=== PATIENT | male | born 1940 | race Caucasian/White ===

== ENCOUNTER 2016-09-21 23:53 | Inpatient (IN) | payer MEDICARE ==
[~2016-09-21] VITALS: Ht 177.8 cm; Wt 120.0 kg
[2016-09-22] VITALS (10 sets, daily range): BP systolic 109–153; BP diastolic 73–96; PULSE 67–106; RESP 16–20; TEMP 96.8–98.2; O2SAT 93–97
--- NOTE | 2016-09-22 00:22 | PD ---
HPI Chief Complaint: Abdominal Pain Time Seen by Provider: 00:11 Travel History International Travel<30 days: No Contact w/Intl Traveler<30days: No Traveled to known affect area: No History of Present Illness HPI This is a 76-year-old male who presents with complaints of syncope. The patient also has a complaint of right upper quadrant abdominal pain 2 weeks. He reports fevers and chills. He reports nausea vomiting and diarrhea. The patient denies any urinary symptoms. The patient has been here for 2 weeks from [place]. His daughter who was at the home when the paramedics arrived states that he's been noncompliant with all his medications since his abdominal pain started. The patient was noted to be in A. fib with RVR with a rate in the 130s. They gave 20 mg of diltiazem. His current rate now is in the 70s. PFSH Social History Tobacco Use: No Allergies-Medications (Allergen,Severity, Reaction): Coded Allergies: No Known Allergies (Unverified , 09/22/16) Reported Meds & Prescriptions Reported Meds & Active Scripts Active Reported Flomax (Tamsulosin HCl) 0.4 Mg Cap 0.4 Mg PO HS Spironolactone 50 Mg Tab 50 Mg PO DAILY Furosemide 20 Mg Tab 20 Mg PO DAILY Oxycodone (Oxycodone HCl) 5 Mg Cap 5 Mg PO Q8H PRN Gabapentin 100 Mg Cap 100 Mg PO BID Tizanidine (Tizanidine HCl) 2 Mg Tab 2 Mg PO BID Lactulose Liq (Lactulose) 10 Gm/15 Ml Soln 30 Ml PO Q6H Digoxin 0.125 Mg Tab 0.125 Mg PO DAILY Metoprolol Tartrate 50 Mg Tab 50 Mg PO BID Review of Systems Except as stated in HPI: all other systems reviewed are Neg General / Constitutional: Positive: Fever HENT: No: Headaches, Lightheadedness Cardiovascular: No: Chest Pain or Discomfort, Palpitations Respiratory: No: Cough, Shortness of Breath Gastrointestinal: Positive: Nausea, Vomiting, Diarrhea, Abdominal Pain (right upper quadrant) Genitourinary: No: Dysuria, Decreased Urinary Output Musculoskeletal: Positive: Weakness (generalized), No: Pain Neurologic: Positive: Weakness (generalized), Syncope, No: Headache Physical Exam Narrative GENERAL: Well-developed well-nourished male in no acute respiratory distress. Patient is complaining of right upper quadrant pain. SKIN: Focused skin assessment warm/dry. HEAD: Atraumatic. Normocephalic. EYES: Questionable mild scleral icterus. No injection or drainage. ENT: Mucous membranes pink and moist. NECK: Trachea midline. No JVD. Supple CARDIOVASCULAR: Irregularly irregular rate in the 60s. No murmurs appreciated. RESPIRATORY: No accessory muscle use. Clear to auscultation. Breath sounds equal bilaterally. Decreased respiratory effort. GASTROINTESTINAL: Abdomen soft, distended. There is subjective tenderness in the right upper quadrant. No rebound or guarding. No pulsatile masses appreciated. No tense ascites appreciated MUSCULOSKELETAL: No obvious deformities. No clubbing. No cyanosis. Trace edema bilateral pretibial. NEUROLOGICAL: Awake and alert. No obvious cranial nerve deficits. Motor grossly within normal limits. Normal speech. Data Data Last Documented VS Vital Signs Date Time Temp Pulse Resp B/P Pulse Ox O2 Delivery O2 Flow Rate FiO2 09/22/16 01:03 85 16 153/96 96 Room Air 09/22/16 00:22 97.8 Orders Complete Blood Count With Diff (09/22/16 00:11) Comprehensive Metabolic Panel (09/22/16 00:11) Lipase (09/22/16 00:11) Lactic Acid (09/22/16:11) Prothrombin Time / Inr (Pt) (09/22/16:11) Act Partial Throm Time (Ptt) (09/22/16 00:11) Urinalysis - C+S If Indicated (09/22/16 00:11) Iv Access Insert/Monitor (09/22/16:11) Ecg Monitoring (09/22/16:11) Oximetry (09/22/16:11) Ct Brain W/O Iv Contrast(Rout) (09/22/16 00:11) Chest, Single Ap (09/22/16 00:11) Electrocardiogram (09/22/16 00:41) Ondansetron Inj (Zofran Inj) (09/22/16:15) Hydromorphone Pf Inj (Dilaudid Pf Inj) (09/22/16 01:15) Ct Abd/Pel W Iv Contrast(Rout) (09/22/16 01:41) Ammonia (09/22/16 01:41) Blood Glucose (09/22/16 01:41) Sodium Chloride 0.9% Flush (Ns Flush) (09/22/16 01:45) Iohexol 350 Inj (Omnipaque 350 Inj) (09/22/16 02:29) Lactulose Liq (Lactulose Liq) (09/22/16 03:15) Echo 2d Comp W/Dopp(Routine) (09/22/16 ) Lactic Acid (09/22/16 06:00) Furosemide Inj (Lasix Inj) (09/22/16 09:00) Place In Observation (09/22/16 ) Vital Signs (Adult) Q4H (09/22/16 03:12) Activity Oob With Assistance (09/22/16 03:12) Roller Mechanic / Telemetry .CONTINUOUS (09/22/16 03:12) Intake + Output WU.QSHIFT (09/22/16 03:12) Diet Heart Healthy (09/22/16 Breakfast) Sodium Chloride 0.9% Flush (Ns Flush) (09/22/16 03:15) Sodium Chloride 0.9% Flush (Ns Flush) (09/22/16 09:00) Ondansetron Inj (Zofran Inj) (09/22/16 03:15) Bisacodyl Supp (Dulcolax Supp) (09/22/16 03:15) Comprehensive Metabolic Panel (09/23/16 06:00) Complete Blood Count With Diff (09/23/16 06:00) Prothrombin Time / Inr (Pt) (09/23/16 06:00) Scd Bilateral/Knee High WU.BID (09/22/16 03:12) Lázaro Bilateral/Knee High WU.QSHIFT (09/22/16 03:12) Acetaminophen (Tylenol) (09/22/16 03:15) Morphine Inj (Morphine Inj) (09/22/16 03:15) Oxycodone (Roxicodone) (09/22/16 03:15) Digoxin (Lanoxin) (09/22/16 09:00) Metoprolol Tartrate (Lopressor) (09/22/16 09:00) Spironolactone (Aldactone) (09/22/16 09:00) Admit Order (Ed Use Only) (09/22/16 03:16) Labs Laboratory Tests Test 09/22/16 09/22/16 00:15 02:00 White Blood Count 9.3 TH/MM3 Red Blood Count 4.76 MIL/MM3 Hemoglobin 15.7 GM/DL Hematocrit 45.2 % Mean Corpuscular Volume 94.9 FL Mean Corpuscular Hemoglobin 33.0 PG Mean Corpuscular Hemoglobin 34.8 % Concent Red Cell Distribution Width 15.3 % Platelet Count 117 TH/MM3 Mean Platelet Volume 8.9 FL Neutrophils (%) (Auto) 80.6 % Lymphocytes (%) (Auto) 8.2 % Monocytes (%) (Auto) 10.1 % Eosinophils (%) (Auto) 0.4 % Basophils (%) (Auto) 0.7 % Neutrophils # (Auto) 7.5 TH/MM3 Lymphocytes # (Auto) 0.8 TH/MM3 Monocytes # (Auto) 0.9 TH/MM3 Eosinophils # (Auto) 0.0 TH/MM3 Basophils # (Auto) 0.1 TH/MM3 CBC Comment DIFF FINAL Differential Comment Prothrombin Time 18.0 SEC Prothromb Time International 1.6 RATIO Ratio Activated Partial 26.8 SEC Thromboplast Time Sodium Level 142 MEQ/L Potassium Level 4.0 MEQ/L Chloride Level 107 MEQ/L Carbon Dioxide Level 27.2 MEQ/L Anion Gap 8 MEQ/L Blood Urea Nitrogen 9 MG/DL Creatinine 0.84 MG/DL Estimat Glomerular Filtration 89 ML/MIN Rate Random Glucose 131 MG/DL Lactic Acid Level 2.6 mmol/L Calcium Level 7.9 MG/DL Total Bilirubin 2.9 MG/DL Aspartate Amino Transf 57 U/L (AST/SGOT) Alanine Aminotransferase 37 U/L (ALT/SGPT) Alkaline Phosphatase 116 U/L Total Protein 6.3 GM/DL Albumin 2.7 GM/DL Lipase 105 U/L Ammonia 132 [facility] Medical Decision Making Medical Screen Exam Complete: Yes Emergency Medical Condition: Yes Differential Diagnosis Cardiac syncope versus vasovagal versus metabolic arrangement versus anemia. Pancreatitis versus hepatitis versus SBP Narrative Course 76-year-old male with a history of hypertension, liver disease, atrial fibrillation, who presents here with altered mental status and question of a syncopal episode. Upon talking to the daughters he's more altered than syncope. The patient has an ammonia level of 132. CT brain shows what appears to be chronic changes. MRI, not emergent is recommended. The case was discussed with Dr. Flowers, [facility], who agrees to bring the patient under her service. He'll be restarted on his medications including lactulose for his ammonia. I discussed with his daughter that he will be admitted and started on his medications. She is agreeable to the plan. Diagnosis Primary Impression: Hyperammonemia Additional Impressions: Atrial fibrillation Hypertension Noncompliance with medication regimen Admitting Information Admitting Physician Requests: Observation Jono Khanna MD September 22, 2016 00:22
[2016-09-22] MEDS ORDERED: SPIR50TA PO (00:30)
[2016-09-22] MEDS ORDERED: TIZA2TAB PO (00:30)
[2016-09-22] MEDS ORDERED: FURO20TA PO (00:30)
[2016-09-22] MEDS ORDERED: DIGO0.12 PO (00:30)
[2016-09-22] MEDS ORDERED: TAMS5CAP PO (00:30)
[2016-09-22] MEDS ORDERED: OXYC1CAP PO (00:30)
[2016-09-22] MEDS ORDERED: METO50TA PO (00:30)
[2016-09-22] MEDS ORDERED: LACT10SO PO (00:30)
[2016-09-22] MEDS ORDERED: GABA100C4 PO (00:30)
[2016-09-22 00:34] LABS: AUTOMATED NEUTROPHIL # 7.5 TH/MM3 (1.8-7.7); BASOPHIL # 0.1 TH/MM3 (0-0.2); BASOPHIL % 0.7 % (0.0-2.0); EOSINOPHIL % 0.4 % (0.0-4.0); HEMATOCRIT 45.2 % (39.0-51.0); HEMO FLAGS DIFF FINAL; LYMPH % 8.2 % (9.0-44.0); LYMPHOCYTE # 0.8 TH/MM3 (1.0-4.8); MEAN CELL VOLUME 94.9 FL (80.0-100.0); MEAN CORPUSCULAR HGB CONC 34.8 % (32.0-36.0); MONO % 10.1 % (0.0-8.0); NEUT % 80.6 % (16.0-70.0); PLATELET COUNT 117 TH/MM3 (150-450); RED BLOOD COUNT 4.76 MIL/MM3 (4.50-5.90); RED CELL DISTRIBUTION WIDTH 15.3 % (11.6-17.2); WHITE BLOOD COUNT 9.3 TH/MM3 (4.0-11.0)
[2016-09-22 00:40] LABS: APTT (PATIENT) 26.8 SEC (24.3-30.1); INTERNATIONAL NORMALIZED RATIO 1.6 RATIO
[2016-09-22 00:49] LABS: ALT (GPT) 37 U/L (12-78); ANION GAP 8 MEQ/L (5-15); AST (GOT) 57 U/L (15-37); BICARBONATE 27.2 MEQ/L (21.0-32.0); BLOOD UREA NITROGEN 9 MG/DL (7-18); CHLORIDE 107 MEQ/L (98-107); GLOMERULAR FILTRATION RATE 89 ML/MIN (>89); SODIUM (NA) 142 MEQ/L (136-145)
[2016-09-22 00:52] LABS: ALKALINE PHOSPHATASE 116 U/L (45-117); TOTAL BILIRUBIN ADULT 2.9 MG/DL (0.2-1.0)
--- NOTE | 2016-09-22 00:55 | RADRPT ---
EXAM DATE/TIME: 09/22/2016 00:16 [facility] COMPARISON: No previous studies available for comparison. INDICATIONS : Shortness of breath. MEDICAL HISTORY : None. SURGICAL HISTORY : None. ENCOUNTER: Initial ACUITY: 1 day PAIN SCORE: Non-responsive. LOCATION: Bilateral chest FINDINGS: A single view of the chest demonstrates the lungs to be symmetrically aerated without evidence of mas s, infiltrate or effusion. The heart size is diffusely enlarged. The bony structures are grossly int act.. CONCLUSION: 1. No acute pulmonary infiltrates. 2. Prominent cardiomegaly. Chago Hill MD on September 22, 2016 at 0:52 Board Certified Radiologist. This report was verified electronically.
--- NOTE | 2016-09-22 01:05 | RADRPT ---
EXAM DATE/TIME: 09/22/2016 00:44 [facility] COMPARISON: No previous studies available for comparison. INDICATIONS : Syncope. RADIATION DOSE: 69.15 CTDIvol (mGy) MEDICAL HISTORY : Cardiovascular disease. Hypertension. Carcinoma, prostate. SURGICAL HISTORY : None. ENCOUNTER: Initial ACUITY: 1 day PAIN SCALE: 0/10 LOCATION: TECHNIQUE: Multiple contiguous axial images were obtained of the head. Using automated exposure control and adj ustment of the mA and/or kV according to patient size, radiation dose was kept as low as reasonably a chievable to obtain optimal diagnostic quality images. FINDINGS: CEREBRUM: The ventricles are normal for age. No evidence of midline shift, mass lesion, hemorrhage. There is a low area of decreased density in the right occipital lobe suggestive of a subacute to old infarction . There is a small area decreased density in the left basal ganglia suggestive of a focal subacute to old infarction. There are chronic white matter changes bilaterally. There are no prior studies for c omparison.. No extra-axial fluid collections are seen. POSTERIOR FOSSA: The cerebellum and brainstem are intact. The 4th ventricle is midline. The cerebellopontine angle i s unremarkable. EXTRACRANIAL: The visualized portion of the orbits is intact. SKULL: The calvaria is intact. No evidence of skull fracture. CONCLUSION: 1. No focal or acute intracranial hemorrhage. 2. Decreased density right occipital lobe suggestive of a subacute to old infarct. 3. Decreased density in the left basal ganglia suggestive of a subacute to old infarct. 4. Recommend MRI of the brain with and without contrast on a nonemergent basis. Chago Hill MD on September 22, 2016 at 1:00 Board Certified Radiologist. This report was verified electronically.
[2016-09-22] MEDS ORDERED: ONDANSETRON HCL 4 MG/2 ML VIAL IVP ONE (01:15)
[2016-09-22] MEDS ORDERED: HYDROmorphone HCL PF 1 MG/ML VIAL IVS ONE (01:15)
[2016-09-22] MEDS ORDERED: SODIUM CHLORIDE 0.9% FLUSH 10 ML FLUSH IVF PRN (01:45)
[2016-09-22] MEDS ORDERED: IOHEXOL 350 MG/ML 10 ML VIAL (for RAD DIAG) IV ONE (02:29)
--- NOTE | 2016-09-22 02:47 | RADRPT ---
EXAM DATE/TIME: 09/22/2016 02:25 [facility] COMPARISON: No previous studies available for comparison. INDICATIONS : Right upper quadrant abdominal pain. IV CONTRAST: 100 cc Omnipaque 350 (iohexol) IV ORAL CONTRAST: No oral contrast ingested. RADIATION DOSE: 19.31 CTDIvol (mGy) MEDICAL HISTORY : Cardiovascular disease. Hypertension. Carcinoma, prostate. SURGICAL HISTORY : None. ENCOUNTER: Initial ACUITY: 2 weeks PAIN SCALE: 10/10 LOCATION: abdomen TECHNIQUE: Volumetric scanning of the abdomen and pelvis was performed. Using automated exposure control and ad justment of the mA and/or kV according to patient size, radiation dose was kept as low as reasonably achievable to obtain optimal diagnostic quality images. FINDINGS: LOWER LUNGS: There is pleural thickening in both lung bases. The heart size is enlarged. The lung bases are grossl y clear. LIVER: Homogeneous density without lesion. There is no dilation of the biliary tree. No calcified gallston es. Multiple surgical clips are seen in the upper abdomen. SPLEEN: Normal size without lesion. PANCREAS: Within normal limits. KIDNEYS: Normal in size and shape. There is no mass, stone or hydronephrosis. ADRENAL GLANDS: Within normal limits. VASCULAR: There is no aortic aneurysm. BOWEL/MESENTERY: The stomach, small bowel, and colon demonstrate no acute abnormality. There is no free intraperitone al air or fluid. No inflammatory changes. There stool in the colon. ABDOMINAL WALL: Within normal limits. RETROPERITONEUM: There is no lymphadenopathy. BLADDER: There is some smooth thickening of the bladder wall. No stones. REPRODUCTIVE: There are seeds to in the prostate gland. INGUINAL: There is no lymphadenopathy or hernia. MUSCULOSKELETAL: Within normal limits for patient age. Degenerative changes. CONCLUSION: No acute intra-abdominal/pelvic pathology. Chago Hill MD on September 22, 2016 at 2:40 Board Certified Radiologist. This report was verified electronically.
[2016-09-22] MEDS ORDERED: ACETAMINOPHEN 325 MG TAB PO PRN (03:15)
[2016-09-22] MEDS ORDERED: MORPHINE SULFATE 4 MG/ML INJ IV PRN (03:15)
[2016-09-22] MEDS ORDERED: SODIUM CHLORIDE 0.9% FLUSH 10 ML FLUSH IV FLUSH PRN (03:15)
[2016-09-22] MEDS ORDERED: BISACODYL 10 MG SUPP RECTAL PRN (03:15)
[2016-09-22] MEDS ORDERED: ONDANSETRON HCL 4 MG/2 ML VIAL IVP PRN (03:15)
[2016-09-22] MEDS: LACTULOSE SYRUP 20 GM/30 ML CUP PO SCH ×3 (03:25→18:19)
--- NOTE | 2016-09-22 04:26 | HHI.HP ---
HPI Service [facility] Primary Care Physician No Primary Care Physician Admission Diagnosis hyperammonemia, A. fib, hypertension, medication noncompliance Diagnoses: (1) Syncope Diagnosis: Principal (2) A-fib Diagnosis: Principal (3) Hepatic encephalopathy Diagnosis: Principal (4) Cirrhosis Diagnosis: Principal (5) Lactic acidosis Diagnosis: Principal (6) HTN (hypertension) Diagnosis: Principal (7) Non-compliance Diagnosis: Principal Travel History International Travel<30 Days: No Contact w/Intl Traveler <30 Da: No Traveled to Known Affected Are: No History of Present Illness This is a 76-year-old male with a reported PMH of A. fib, HTN, Prostate CA and Cirrhosis who is brought to the ER by EMS secondary to apparent syncopal episode. Patient very poor historian, history obtained from medical record, per report pt visiting from [place], non-compliant w/ meds x2 wks. Daughter called EMS after pt had apparent syncopal episode, details unknown. Upon EMS arrival, pt noted to be in A-fib w/ RVR, HR 130's s/p Cardizem IV, now rate-controlled. On arrival, BP 109/81, HR 67, O2 sat 96% on RA, Afebrile. CBC unremarkable except for platelets 117, neutrophils 80, no previous labs for comparison. Lactic Acid 2.6. Ammonia 132. INR 1.6. 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 CXR with no acute findings. CT Abd/Pelvis negative for intra-abdominal pathology. Review of Systems Except as stated in HPI: all other systems reviewed are Neg ROS: 14 point review of systems otherwise negative. Past Family Social History Past Medical History PMH: A. fib, HTN, Prostate CA and Cirrhosis Past Surgical History PAST SURGICAL HISTORY: Prostate Seeds Allergies: Coded Allergies: No Known Allergies (Unverified , 09/22/16) Family History PAST FAMILY HISTORY: Reviewed. No h/o DM or CAD Social History PAST SOCIAL HISTORY: Reportedly negative for alcohol, tobacco or drugs. Physical Exam Vital Signs Vital Signs Date Time Temp Pulse Resp B/P Pulse Ox O2 Delivery O2 Flow Rate FiO2 09/22/16 03:58 16 97 Room Air 09/22/16 01:03 85 16 153/96 96 Room Air 09/22/16 00:22 97.8 67 16 109/81 96 Room Air Physical Exam PE: GENERAL: Elderly male in no acute distress, confused. HEENT: PERRLA, EOMI. No scleral icterus or conjunctival pallor. No lid lag or facial droop. CARDIOVASCULAR: Irregularly irregular, in A. fib, rate controlled. No obvious murmurs to auscultation. No chest tenderness to palpation. RESPIRATORY: No obvious rhonchi or wheezing. Clear to auscultation. Breath sounds equal bilaterally. GASTROINTESTINAL: Abdomen soft, mild tenderness to palpation RUQ/epigastric region, nondistended. BS normal. MUSCULOSKELETAL: Extremities without clubbing, cyanosis, or edema. No obvious deformities. NEUROLOGICAL: Awake, alert and oriented x4. No focal neurologic deficits. Moving both upper and lower extremities spontaneously. Laboratory Laboratory Tests Test 09/22/16 09/22/16 00:15 02:00 White Blood Count 9.3 Red Blood Count 4.76 Hemoglobin 15.7 Hematocrit 45.2 Mean Corpuscular Volume 94.9 Mean Corpuscular Hemoglobin 33.0 Mean Corpuscular Hemoglobin 34.8 Concent Red Cell Distribution Width 15.3 Platelet Count 117 Mean Platelet Volume 8.9 Neutrophils (%) (Auto) 80.6 Lymphocytes (%) (Auto) 8.2 Monocytes (%) (Auto) 10.1 Eosinophils (%) (Auto) 0.4 Basophils (%) (Auto) 0.7 Neutrophils # (Auto) 7.5 Lymphocytes # (Auto) 0.8 Monocytes # (Auto) 0.9 Eosinophils # (Auto) 0.0 Basophils # (Auto) 0.1 CBC Comment DIFF FINAL Differential Comment Prothrombin Time 18.0 Prothromb Time International 1.6 Ratio Activated Partial 26.8 Thromboplast Time Sodium Level 142 Potassium Level 4.0 Chloride Level 107 Carbon Dioxide Level 27.2 Anion Gap 8 Blood Urea Nitrogen 9 Creatinine 0.84 Estimat Glomerular Filtration 89 Rate Random Glucose 131 Lactic Acid Level 2.6 Calcium Level 7.9 Total Bilirubin 2.9 Aspartate Amino Transf 57 (AST/SGOT) Alanine Aminotransferase 37 (ALT/SGPT) Alkaline Phosphatase 116 Total Protein 6.3 Albumin 2.7 Lipase 105 Ammonia 132 Result Diagram: 09/22/16 0015 09/22/16 0015 Assessment and Plan Problem List: (1) Syncope ICD Code: R55 Status: Acute (2) A-fib ICD Code: I48.91 Status: Acute (3) Cirrhosis ICD Code: K74.60 Status: Acute (4) Lactic acidosis ICD Code: E87.2 Status: Acute (5) Hepatic encephalopathy ICD Code: K72.90 Status: Acute (6) HTN (hypertension) ICD Code: I10 Status: Acute (7) Non-compliance ICD Code: Z91.19 Status: Acute Assessment and Plan A/P: 1. Syncope: reported syncopal event at home, witnessed by Daughter, no convulsive activity noted, no incontinence. CT Head w/ no acute finding, noted to have subacute/old right occipital lobe infarct and subacute/old left basal ganglia infarct w/ recommendation for non-emergent MRI Brain, images reviewed by me. Admit for Observation, telemetry, check Echo. 2. A-fib: w/ RVR, HR 130's per EMS, s/p Cardizem IV x1, now rate-controlled. Non-compliant w/ meds. Resume home Digoxin and Metoprolol. Check Echo as above. 3. Cirrhosis: h/o Chronic Cirrhosis, unclear etiology. Non-compliant w/ meds x2 wks. Resume home Aldactone, Lasix and Lactulose. 4. Hepatic Encephalopathy: Pt noted to be confused, ammonia 132, off meds x2 wks as above. Resume home Lactulose, hold for loose stool. Neuro checks. 5. Lactic Acidosis: Lactate 2.6. Unclear etiology. No evidence of sepsis. IVF, repeat lactate in am. 6. HTN: BP 153/96, HR 85, resume home medications, monitor BP. 7. Non-Compliance: Pt off meds x2 wks, follows w/ doctors in [place] where he lives. 8. DVT Prophylaxis: SCD/Teds. 9. Social work for d/c planning as needed. 10. Case discussed w/ ER physician at length. Ijeoma Hsu MD September 22, 2016 04:26
[2016-09-22] MEDS ORDERED: DEXT 5%-NACL 0.45% 500 ML INJ 500 ML IV ONE (04:30)
[2016-09-22] MEDS: DIGOXIN 0.125 MG TAB PO SCH (08:17)
[2016-09-22] MEDS: SPIRONOLACTONE 50 MG TAB PO SCH (08:17)
[2016-09-22] MEDS: METOPROLOL TARTRATE 50 MG TAB PO SCH ×2 (08:17→21:40)
[2016-09-22] MEDS: SODIUM CHLORIDE 0.9% FLUSH 10 ML FLUSH IV FLUSH SCH ×2 (08:17→21:00)
[2016-09-22] MEDS: FUROSEMIDE 20 MG/2 ML VIAL IV PUSH SCH ×2 (08:18→18:19)
[2016-09-22 08:59] LABS: ANION GAP 3 MEQ/L (5-15); AST (GOT) 51 U/L (15-37); BICARBONATE 34.7 MEQ/L (21.0-32.0); BLOOD UREA NITROGEN 9 MG/DL (7-18); CHLORIDE 104 MEQ/L (98-107); GLOMERULAR FILTRATION RATE 93 ML/MIN (>89); POTASSIUM 4.3 MEQ/L (3.5-5.1); SODIUM (NA) 142 MEQ/L (136-145)
[2016-09-22 09:01] LABS: BACTERIA, URINE MOD /hpf; BLOOD, URINE NEG (NEG); COMMENT (UR) CULTURE INDICATED; CULTURE IF INDICATED CULTURE INDICATED; GLUCOSE,URINE NEG (NEG); KETONE, URINE NEG (NEG); MUCUS URINE FEW /lpf (OCC); NITRITE,URINE NEG (NEG); PH, URINE 6.5 (5.0-8.5); SQUAMOUS EPITHELIAL CELL URINE 1 /hpf (0-5); URINE COLOR YELLOW (YELLW/STRAW)
[2016-09-22 09:02] LABS: ALKALINE PHOSPHATASE 112 U/L (45-117); ALT (GPT) 39 U/L (12-78); TOTAL BILIRUBIN ADULT 3.3 MG/DL (0.2-1.0)
[2016-09-22] MEDS ORDERED: GADODIAMIDE PF 287 MG/ML 20 ML VIAL (for RAD MRI) IV ONE (09:43)
--- NOTE | 2016-09-22 10:13 | RADRPT ---
EXAM DATE/TIME: 09/22/2016 09:27 [facility] COMPARISON: CT BRAIN W/O CONTRAST, September 22, 2016, 0:44. INDICATIONS : Syncope. Abnormal CT. Lethargy. CONTRAST: 20 cc Omniscan (gadodiamide) IV MEDICAL HISTORY : Hypertension. Carcinoma, prostate. SURGICAL HISTORY : Prostate seed placement. ENCOUNTER: Initial ACUITY: 1 day PAIN SCORE: 0/10 LOCATION: cranial TECHNIQUE: Multiplanar, multisequence MRI of the brain was performed both prior to and following the administrat ion of paramagnetic contrast. FINDINGS: CEREBRUM: The ventricles are normal for age. Old infarct left basal ganglia. No evidence of midline shift, mass lesion, hemorrhage or acute infarction. No extraaxial fluid collections are seen. The pituitary gl and and suprasellar cistern are normal in configuration. WHITE MATTER: Scattered foci of bright T2 signal abnormalities are seen in the white matter. POSTERIOR FOSSA: The cerebellum and brainstem are intact. The 4th ventricle is midline. The cerebellopontine angle is unremarkable. The cerebellar tonsils are normal in position. DIFFUSION IMAGING: No focal areas of restricted diffusion are seen. No evidence of acute infarction. EXTRACRANIAL: The visualized portions of the orbits and paranasal sinuses are unremarkable. POST-CONTRAST: No abnormal areas of parenchymal or dural enhancement. No evidence of blood-brain barrier breakdown. CONCLUSION: 1. Remote infarct left basal ganglia. 2. No acute infarct and no acute intracranial abnormality. 3. No infarct right occipital lobe, the abnormality on CT scan is likely artifact. Nikita Brody MD on September 22, 2016 at 10:04 Board Certified Radiologist. This report was verified electronically.
[2016-09-22 10:23] LABS: LACTIC ACID GHOST NOT REPORTABLE
--- NOTE | 2016-09-22 10:59 | HHI.PR ---
Subjective Remarks Follow up for hepatic encephalopathy, syncope. The patient is awake but drowsy, oriented to self, knows he is in a hospital in [place], [place], knows the year is " -" but states the month is October. He does not recall the events leading up to his admission yesterday. He speaks and understands [place] well. He states he is just tired today. Denies any abdominal pain or nausea. He states he doesn't really have an appetite. The patient admits it's probably been at least a couple weeks since he's been taking his medications. When asked the last time he took lactulose, he states "ew I don't like that stuff", suspect patient hasn' t taken this in awhile. He does report history of paracentesis, does not recall when his last one was done but states he's had multiple paracentesis. He states he is from [place] but he lives here in [place] with his daughter. Objective Vitals Vital Signs Date Time Temp Pulse Resp B/P Pulse Ox O2 Delivery O2 Flow Rate FiO2 09/22/16 05:12 98.2 102 18 136/87 93 09/22/16 03:58 16 97 Room Air 09/22/16 01:03 85 16 153/96 96 Room Air 09/22/16 00:22 97.8 67 16 109/81 96 Room Air Result Diagram: 09/22/16 0015 09/22/16 0817 Imaging Last Impressions Abdomen/Pelvis CT 09/22/16 0141 Signed Impressions: Service Date/Time: Thursday, September 22, 2016 02:25 - CONCLUSION: No acute intra-abdominal/pelvic pathology. hCago Hill MD Head CT 09/22/16 001 Signed Impressions: Service Date/Time: Thursday, September 22, 2016 00:44 - CONCLUSION: 1. No focal or acute intracranial hemorrhage. 2. Decreased density right occipital lobe suggestive of a subacute to old infarct. 3. Decreased density in the left basal ganglia suggestive of a subacute to old infarct. 4. Recommend MRI of the brain with and without contrast on a nonemergent basis. Chago Hill MD Chest X-Ray 09/22/1610 Signed Impressions: Service Date/Time: Thursday, September 22, 2016 00:16 - CONCLUSION: 1. No acute pulmonary infiltrates. 2. Prominent cardiomegaly. Chago Hill MD Brain MRI 09/22/16 0000 Signed Impressions: Service Date/Time: Thursday, September 22, 2016 09:27 - CONCLUSION: 1. Remote infarct left basal ganglia. 2. No acute infarct and no acute intracranial abnormality. 3. No infarct right occipital lobe, the abnormality on CT scan is likely artifact. Nikita Brody MD Objective Remarks GENERAL: Well-nourished, well-developed pleasant elderly male patient in [place]. Drowsy, falls asleep during conversation. SKIN: Warm and dry. No rash. HEENT: Normocephalic. Atraumatic. Pupils equal and round. Minimal scleral icterus. Mucous membranes pink and moist. NECK: Supple. Trachea midline. CARDIOVASCULAR: Regular rate and rhythm. S1, S2 noted. No murmur appreciated. RESPIRATORY: No accessory muscle use. Clear to auscultation. Breath sounds equal bilaterally. GASTROINTESTINAL: Abdomen soft, non-tender, nondistended, mild ascites. Normoactive bowel sounds x4. MUSCULOSKELETAL: No obvious deformities. Extremities without clubbing, cyanosis , or edema. NEUROLOGICAL: Awake, but drowsy, oriented person, place, and year only. No obvious cranial nerve deficits. Motor grossly within normal limits. Normal speech. PSYCHIATRIC: Appropriate mood and affect; insight and judgment limited at this time. Medications and IVs Current Medications Medications (Trade) Dose Ordered Sig/Thor Route Start Time Stop Time Status Last Admin (Lactulose Liq) 30 ml Q8H PO 09/22/16 03:15 09/22/16 03:25 (Lasix Inj) 20 mg BID@,18 IV PUSH 09/22/16 09:00 09/22/16 08:18 (NS Flush) 2 ml UNSCH PRN IV FLUSH 09/22/16 03:15 (NS Flush) 2 ml BID IV FLUSH 09/22/16 09:00 (Zofran Inj) 4 mg Q6H PRN IVP 09/22/16 03:15 (Dulcolax Supp) 10 mg DAILY PRN RECTAL 09/22/16 03:15 (Tylenol) 650 mg Q6H PRN PO 09/22/16 03:15 (Morphine Inj) 2 mg Q3H PRN IV 09/22/16 03:15 (Roxicodone) 5 mg Q4H PRN PO 09/22/16 03:15 (Lanoxin) 0.125 mg DAILY PO 09/22/16 09:00 09/22/16 08:17 (Lopressor) 50 mg BID PO 09/22/16 09:00 09/22/16 08:17 (Aldactone) 50 mg DAILY PO 09/22/16 09:00 09/22/16 08:17 A/P Problem List: (1) Syncope ICD Code: R55 Status: Acute (2) A-fib ICD Code: I48.91 Status: Acute (3) Cirrhosis ICD Code: K74.60 Status: Acute (4) Lactic acidosis ICD Code: E87.2 Status: Acute (5) Hepatic encephalopathy ICD Code: K72.90 Status: Acute (6) HTN (hypertension) ICD Code: I10 Status: Acute (7) Non-compliance ICD Code: Z91.19 Status: Acute Assessment and Plan 76-year-old male with a reported PMH of A. fib, HTN, Prostate CA and Cirrhosis who is brought to the ER by EMS secondary to apparent syncopal episode. Patient very poor historian, history obtained from medical record, per report pt visiting from [place], non-compliant w/ meds x2 wks. Daughter called EMS after pt had apparent syncopal episode, details unknown. Upon EMS arrival, pt noted to be in A-fib w/ RVR, HR 130's s/p Cardizem IV, now rate-controlled. Syncope: reported syncopal event at home, witnessed by Daughter, no convulsive activity noted, no incontinence. CT Head images reviewed by me, no acute finding, subacute/old right occipital lobe infarct and subacute/old left basal ganglia infarct w/ recommendation for non-emergent MRI Brain. Brain MRI shows remote infarct left basal ganglia, no acute infarct; no infarct right occipital lobe, abnormality seen on CT likely artifact. Admitted for Observation, monitor on telemetry, check Echo. A-fib: w/ RVR, HR 130's per EMS, s/p Cardizem IV x1, now rate-controlled. Non- compliant w/ meds. Resume home Digoxin and Metoprolol. Check Echo as above. Cirrhosis: h/o Chronic Cirrhosis, unclear etiology. Non-compliant w/ meds x2 wks. Resumed home Aldactone, Lasix and Lactulose. Hepatic Encephalopathy: Pt noted to be confused, ammonia 145, off meds x2 wks as above. Resumed home Lactulose q6h, hold for loose stool. Continue Neuro checks. Add Rifaximin. Lactic Acidosis: Lactate 2.6. Unclear etiology. No evidence of sepsis. IVF, repeat lactate improving, 2.2. HTN: BP 153/96, HR 85, resumed home medications, monitor BP. Non-Compliance: Pt off meds x2 wks, follows w/ doctors in [place] reportedly however patient states he lives in [place] with his daughter. Will clarify when patient is more awake/alert and discuss with family. Patient needs f/up with PCP and GI in [place] upon discharge. DVT Prophylaxis: SCD/Teds. Discussed with Dr. Polanco. Georgie Patrick PA-C September 22, 2016 10:59
[2016-09-22] MEDS ORDERED: THIAMINE INJ 100 MG in SODIUM CHLORIDE 0.9% INJ 100 ML IV ONE (13:00)
--- NOTE | 2016-09-22 13:55 | EKG ---
Date Performed: 09/22/2016 Time Performed: 00:01:20 PTAGE: 76 years EKG: ATRIAL FIBRILLATION NONSPECIFIC T-WAVE ABNORMALITY LEFT VENTRICULAR HYPERTROPHY CANNOT BE E XCLUDED ABNORMAL RHYTHM ECG NO PREVIOUS TRACING DOCTOR: Melanie Mancera Interpretating Date/Time 09/22/2016 13:55:17
--- NOTE | 2016-09-22 13:57 | EKG ---
Date Performed: 09/22/2016 Time Performed: 06:36:28 PTAGE: 76 years EKG: ATRIAL FIBRILLATION WITH RAPID VENTRICULAR RESPONSE WITH ABERRANT CONDUCTION OR VENTRICULAR PREMATURE COMPLEXES ST DEVIATION AND MODERATE T-WAVE ABNORMALITY, CONSIDER LATERAL ISCHEMIA Compared to previous tracing, there has been an increased in the lateral ST-T wave changes. This may be rela fidel to the increase in heart rate but clinical correlation is advised. ABNORMAL ECG PREVIOUS TRACING : 09/22/2016 00.01 DOCTOR: Melanie Mancera Interpretating Date/Time 09/22/2016 13:56:04
[2016-09-22] MEDS: RIFAXIMIN 550 MG TAB PO SCH ×2 (14:59→21:00)
--- NOTE | 2016-09-22 16:11 | EC ---
Study Study Date:09/22/2016 STUDY CONCLUSIONS SUMMARY - Left ventricle: The cavity size was normal. Wall thickness was normal. Systolic function was normal. The estimated ejection fraction was in the range of 50% to 55%. Wall motion was normal; there were no regional wall motion abnormalities. - Aortic valve: Valve area: 2.14cm^2 (Vmax). - Left atrium: The atrium was mildly dilated. If LV function is below 40, please consider prescribing an ACEI or ARB or document rationale for non-use. PROCEDURE DATA STUDY STATUS: Elective. Procedure: Transthoracic echocardiography. Image quality was good. Scanning was performed from the parasternal, apical, and subcostal acoustic windows. Study completion: The patient tolerated the procedure well. Transthoracic echocardiography. M-mode, complete 2D, complete spectral Doppler, and color Doppler. Height: Height: 70in. Weight: Weight: 263.5lb. Body mass index: BMI: 37.9kg/m^2. Body surface area: BSA: 2.35m^2. Patient status: Inpatient. CARDIAC ANATOMY LEFT VENTRICLE: The cavity size was normal. Wall thickness was normal. Systolic function was normal. The estimated ejection fraction was in the range of 50% to 55%. Wall motion was normal; there were no regional wall motion abnormalities. AORTIC VALVE: Trileaflet; mildly thickened, mildly calcified leaflets. Doppler: Transvalvular velocity was within the normal range. There was no stenosis. No regurgitation. Valve area: 2.14cm^2 (Vmax). Indexed valve area: 0.91cm^2/m^2 (Vmax). AORTA: Aortic root: The aortic root was normal in size. MITRAL VALVE: Structurally normal valve. Doppler: Transvalvular velocity was within the normal range. There was no evidence for stenosis. No regurgitation. LEFT ATRIUM: The atrium was mildly dilated. RIGHT VENTRICLE: The cavity size was normal. Wall thickness was normal. PULMONIC VALVE: Doppler: Transvalvular velocity was within the normal range. There was no evidence for stenosis. No regurgitation. TRICUSPID VALVE: Structurally normal valve. Doppler: Transvalvular velocity was within the normal range. No regurgitation. PULMONARY ARTERY: The main pulmonary artery was normal-sized. Systolic pressure was within the normal range. RIGHT ATRIUM: The atrium was normal in size. PERICARDIUM: There was no pericardial effusion. SYSTEMIC VEINS: Inferior vena cava: The vessel was normal in size. Patient weight: 263.5lb _Ejection fraction:_ 65-75% _Fractional shortening:_ 32% up to 5Kg 5-11.5Kg 11.6-22.9Kg 23-45Kg 45-57Kg Aortic Root 7-13 <17 13-22 17-27 17-27 LA diam 6-13 <23 24-38 33-47 37-40 RVID 10-17 7-15 7-15 7-18 8-17 LVIDd 12-22 <32 24-38 33-47 37-40 LVPW 2-4 3-6 5-7 6-8 7-8 IVS 2-4 3-6 5-7 6-8 7-8 BASIC MEASUREMENTS ADULT NORMAL Left ventricle LV internal dimension, ED, chordal 51.4 mm 43-52 level, PLAX LV internal dimension, ES, chordal *40.4 mm 23-38 level, PLAX Fractional shortening, chordal level, *21 % >29 PLAX LV posterior wall thickness, ED 13 mm IVS/LVPW ratio, ED 1.02 <1.3 Ventricular septum Septal thickness, ED 13.2 mm Aortic valve Leaflet separation 18 mm 15-26 Right ventricle RV internal dimension, ED, PLAX 24.8 mm 19-38 BASIC MEASUREMENTS ADULT NORMAL Aortic valve Leaflet separation 18 mm 15-26 Aorta Root diameter, ED 24 mm 20-37 Left atrium Anterior-posterior dimension, ES *43 mm 19-40 Anterior-posterior dimension index, ES 1.83 cm/m^2 <2.2 LA/aortic root ratio 1.79 DOPPLER MEASUREMENTS ADULT NORMAL Main pulmonary artery Pressure, S 30 mm Hg =30 Aortic valve Peak velocity, S 110 cm/s Valve area, Vmax 2.14 cm^2 Valve area index, Vmax 0.91 cm^2/m^2 Tricuspid valve Regurgitant peak velocity 229 cm/s Peak RV-RA gradient, S 21 mm Hg Maximal regurgitant velocity 229 cm/s Systemic veins Estimated CVP 10 mm Hg Right ventricle RV pressure, S *34 mm Hg <30 Pulmonic valve Peak velocity, S 105 cm/s LEGEND: Mean values are shown as u=mean value. Asterisk (*) garzon values outside specified normal range. Prepared and signed by Ismael Norwood [id number]
[2016-09-23] VITALS (8 sets, daily range): BP systolic 107–141; BP diastolic 67–96; PULSE 85–119; RESP 18–20; TEMP 96.5–99.4; O2SAT 90–96
[2016-09-23] MEDS: LACTULOSE SYRUP 20 GM/30 ML CUP PO SCH ×5 (06:00→23:23)
[2016-09-23] MEDS: SPIRONOLACTONE 50 MG TAB PO SCH (08:40)
[2016-09-23] MEDS: DIGOXIN 0.125 MG TAB PO SCH (08:40)
[2016-09-23] MEDS: RIFAXIMIN 550 MG TAB PO SCH ×2 (08:40→21:33)
[2016-09-23] MEDS: FUROSEMIDE 20 MG/2 ML VIAL IV PUSH SCH ×2 (08:40→16:41)
[2016-09-23] MEDS: METOPROLOL TARTRATE 50 MG TAB PO SCH ×2 (08:41→21:33)
--- NOTE | 2016-09-23 09:17 | HHI.PR ---
Subjective Remarks Patient seen and examined this am. Complaining of back pain, that started yesterday. Takes oxycodone at home. Was previously getting this then was stopped, likely due to the patients increased drowsiness. The patients vitals are stable. He denies SOB. He states he has "little bit of chest pain." He states his daughter brought him to the hospital because he was sleeping too much. He states he last saw a doctor two months ago. He states he's planning on living her for a while. Objective Vital Signs Date Time Temp Pulse Resp B/P Pulse Ox O2 Delivery O2 Flow Rate FiO2 09/23/16 07:50 99.4 88 20 107/67 90 09/23/16 04:00 98.7 85 18 120/70 95 09/23/16 00:00 99.1 110 20 118/70 95 09/22/16 20:00 97.2 82 18 122/74 97 09/22/16 19:05 97 Nasal Cannula 2.00 09/22/16 16:30 96.8 69 20 116/74 97 09/22/16 15:48 98.2 72 18 117/73 96 09/22/16 10:48 97.8 70 18 147/87 95 09/22/16 10:25 106 I/O 09/22/16 09/22/16 09/22/16 09/23/16 09/23/16 09/23/16 07:00 15:00 23:00 07:00 15:00 23:00 Intake Total 240 ml 240 ml Output Total 600 ml 300 ml Balance -360 ml -60 ml Intake Oral 240 ml 240 ml Output Urine Total 600 ml 300 ml # Voids 1 2 # Bowel Movements 1 Result Diagram: 09/22/16 0015 09/22/16 0817 Imaging Last Impressions Abdomen/Pelvis CT 09/22/16 0141 Signed Impressions: Service Date/Time: Thursday, September 22, 2016 02:25 - CONCLUSION: No acute intra-abdominal/pelvic pathology. Chago Hill MD Head CT 09/22/16 0011 Signed Impressions: Service Date/Time: Thursday, September 22, 2016 00:44 - CONCLUSION: 1. No focal or acute intracranial hemorrhage. 2. Decreased density right occipital lobe suggestive of a subacute to old infarct. 3. Decreased density in the left basal ganglia suggestive of a subacute to old infarct. 4. Recommend MRI of the brain with and without contrast on a nonemergent basis. Chago Hill MD Chest X-Ray 09/22/16 0011 Signed Impressions: Service Date/Time: Thursday, September 22, 2016 00:16 - CONCLUSION: 1. No acute pulmonary infiltrates. 2. Prominent cardiomegaly. Chago Hill MD Brain MRI 09/22/16 0000 Signed Impressions: Service Date/Time: Thursday, September 22, 2016 09:27 - CONCLUSION: 1. Remote infarct left basal ganglia. 2. No acute infarct and no acute intracranial abnormality. 3. No infarct right occipital lobe, the abnormality on CT scan is likely artifact. Nikita Brody MD Objective Remarks GENERAL: Well-nourished, well-developed pleasant elderly male patient in [facility]. He is awake and alert. Answers questions appropriately. SKIN: Warm and dry. No rash. HEENT: Normocephalic. Atraumatic. Pupils equal and round. Minimal scleral icterus. Mucous membranes pink and moist. NECK: Supple. Trachea midline. CARDIOVASCULAR: Regular rate and rhythm. S1, S2 noted. No murmur appreciated. RESPIRATORY: No accessory muscle use. Clear to auscultation. Breath sounds equal bilaterally. GASTROINTESTINAL: Abdomen soft, non-tender, nondistended, mild ascites. Normoactive bowel sounds x4. MUSCULOSKELETAL: No obvious deformities. Extremities without clubbing, cyanosis , or edema. NEUROLOGICAL: Awake, alert and orientated.. No obvious cranial nerve deficits. Motor grossly within normal limits. Normal speech. PSYCHIATRIC: Appropriate mood and affect; insight and judgment limited at this time. A/P Problem List: (1) Atrial fibrillation ICD Code: I48.91 (2) Hyperammonemia ICD Code: E72.20 (3) Hypertension ICD Code: I10 (4) A-fib ICD Code: I48.91 (5) Syncope ICD Code: R55 (6) HTN (hypertension) ICD Code: I10 Assessment and Plan 76-year-old male with a reported PMH of A. fib, HTN, Prostate CA and Cirrhosis who is brought to the ER by EMS secondary to apparent syncopal episode. Patient very poor historian, history obtained from medical record, per report pt visiting from [place], non-compliant w/ meds x2 wks. Daughter called EMS after pt had apparent syncopal episode, details unknown. Upon EMS arrival, pt noted to be in A-fib w/ RVR, HR 130's s/p Cardizem IV, now rate-controlled. Syncope: reported syncopal event at home, witnessed by Daughter, no convulsive activity noted, no incontinence. CT Head image no acute finding, subacute/old right occipital lobe infarct and subacute/old left basal ganglia infarct w/ recommendation for non-emergent MRI Brain. Brain MRI shows remote infarct left basal ganglia, no acute infarct; no infarct right occipital lobe, abnormality seen on CT likely artifact. Admitted for Observation, monitor on telemetry, check Echo. A-fib:w/ RVR on admission, likely due to Non-compliant w/ meds. Resume home Digoxin and Metoprolol. Check Echo: EF 50-55%, normal wall motion, left atrium mildly dilated. CHADS-VASC 3 given age, hx HTN, and hx vascular disease. Likely needs anticoagulation, wishes to discuss this when daughter arrives. Will try to coordinate a meeting with her. Cirrhosis: h/o Chronic Cirrhosis, unclear etiology. Non-compliant w/ meds x2 wks. Resumed home Aldactone, Lasix and Lactulose. Hepatic Encephalopathy: Pt noted to be confused, ammonia 145, off meds x2 wks as above. Resumed home Lactulose q6h, hold for loose stool. Continue Neuro checks. Add Rifaximin. Lactic Acidosis: Lactate 2.6. Unclear etiology. No evidence of sepsis. IVF, repeat lactate improving, 1.9. HTN: BP 153/96, HR 85, resumed home medications, monitor BP. Non-Compliance: Pt off meds x2 wks, follows w/ doctors in [place] reportedly however patient states he lives in [place] with his daughter. Patient needs f/up with PCP and GI in [place] upon discharge. DVT Prophylaxis: SCD/Teds Discharge Planning D/C home pending clinical improvement. Likely 1-2 days. Must determine plan for anticoagulation. Iesha Bray MD R3 September 23, 2016 09:17
--- NOTE | 2016-09-23 09:36 | HHI.FPPN ---
Addendum to progress note ADDENDUM Reason for addendum: Additonal documentation Additional information UA is significant for bacteria and leuk est. I have started the patient on rocephin 1 g daily. - UC is pending Iesha Bray MD R3 September 23, 2016 09:36
[2016-09-23] MEDS: SODIUM CHLORIDE 0.9% FLUSH 10 ML FLUSH IV FLUSH SCH ×2 (10:45→21:00)
[2016-09-23] MEDS: cefTRIAXone INJ 1,000 MG in SODIUM CHLORIDE 0.9% INJ 100 ML IV SCH (10:45)
--- NOTE | 2016-09-23 13:45 | HHI.FPPN ---
Addendum to progress note ADDENDUM Reason for addendum: Additonal documentation Additional information Met with patients daughter. Discussed patients medical hx further. Patient has long standing hx of afib. Was previously on anticoagulation but states when he had prostate surgery 7 years ago it was never resumed. Throughout his life she states his anticoagulation has been stopped and started she is unsure why. 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 She states she will contact him in the am so that we can determine if the patient should be discharged on anticoagulation. Iesha Bray MD R3 September 23, 2016 13:45
[2016-09-23 14:25] LABS: AUTOMATED NEUTROPHIL # 8.2 TH/MM3 (1.8-7.7); BASOPHIL % 0.3 % (0.0-2.0); EOSINOPHIL % 0.1 % (0.0-4.0); HEMATOCRIT 43.7 % (39.0-51.0); LYMPHOCYTE # 0.5 TH/MM3 (1.0-4.8); MEAN CELL VOLUME 96.3 FL (80.0-100.0); MEAN CORPUSCULAR HEMOGLOBIN 32.4 PG (27.0-34.0); MEAN CORPUSCULAR HGB CONC 33.6 % (32.0-36.0); MONO % 10.5 % (0.0-8.0); NEUT % 84.1 % (16.0-70.0); PLATELET COUNT 95 TH/MM3 (150-450); RED BLOOD COUNT 4.53 MIL/MM3 (4.50-5.90); RED CELL DISTRIBUTION WIDTH 15.6 % (11.6-17.2); WHITE BLOOD COUNT 9.8 TH/MM3 (4.0-11.0)
[2016-09-23 14:27] LABS: HEMO FLAGS AUTO DIFF
[2016-09-23 14:31] LABS: INTERNATIONAL NORMALIZED RATIO 1.7 RATIO; PROTHROMBIN TIME - PATIENT 19.5 SEC (9.8-11.6)
[2016-09-23 14:44] LABS: ALKALINE PHOSPHATASE 100 U/L (45-117); TOTAL BILIRUBIN ADULT 2.1 MG/DL (0.2-1.0)
[2016-09-23 14:51] LABS: ALT (GPT) 38 U/L (12-78); ANION GAP 6 MEQ/L (5-15); AST (GOT) 52 U/L (15-37); BICARBONATE 35.4 MEQ/L (21.0-32.0); BLOOD UREA NITROGEN 11 MG/DL (7-18); CHLORIDE 99 MEQ/L (98-107); GLOMERULAR FILTRATION RATE 87 ML/MIN (>89); POTASSIUM 3.7 MEQ/L (3.5-5.1); SODIUM (NA) 140 MEQ/L (136-145)
[2016-09-23 15:10] LABS: PLATELET ESTIMATE SMEAR LOW (NORMAL); PLATELET MORPHOLOGY NORMAL (NORMAL); SCAN/DIFF AUTO DIFF CONFIRMED
[2016-09-24] VITALS (7 sets, daily range): BP systolic 98–148; BP diastolic 63–87; PULSE 62–133; RESP 17–18; TEMP 96.9–98.1; O2SAT 93–98
[2016-09-24] MEDS: LACTULOSE SYRUP 20 GM/30 ML CUP PO SCH ×3 (05:59→17:31)
[2016-09-24] MEDS: DIGOXIN 0.125 MG TAB PO SCH (09:35)
[2016-09-24] MEDS: SPIRONOLACTONE 50 MG TAB PO SCH (09:35)
[2016-09-24] MEDS: RIFAXIMIN 550 MG TAB PO SCH ×2 (09:35→20:52)
[2016-09-24] MEDS: FUROSEMIDE 20 MG/2 ML VIAL IV PUSH SCH (09:35)
[2016-09-24] MEDS: SODIUM CHLORIDE 0.9% FLUSH 10 ML FLUSH IV FLUSH SCH ×2 (09:35→20:53)
[2016-09-24] MEDS: METOPROLOL TARTRATE 50 MG TAB PO SCH ×2 (09:35→20:53)
[2016-09-24] MEDS: cefTRIAXone INJ 1,000 MG in SODIUM CHLORIDE 0.9% INJ 100 ML IV SCH (11:10)
--- NOTE | 2016-09-24 13:55 | HHI.PR ---
Subjective Remarks Follow-up for syncope, atrial fibrillation, hepatic encephalopathy. Patient is currently doing well. Denies any acute chest pain, shortness of breath, fever or chills. He is able to get up from bed and use bedside commode. He is also bloating short distance in the room. Objective Vitals Vital Signs Date Time Temp Pulse Resp B/P Pulse Ox O2 Delivery O2 Flow Rate FiO2 09/24/16 12:00 98.1 71 18 111/63 93 09/24/16 08:00 97.5 110 18 125/76 97 09/24/16 04:00 96.9 133 18 124/86 98 09/24/16 00:00 97.6 86 18 125/87 98 09/23/16 20:37 118 09/23/16 20:00 97.4 113 18 141/96 96 09/23/16 15:50 96.9 119 20 118/74 96 I/O 09/23/16 09/23/16 09/23/16 09/24/16 09/24/16 09/24/16 07:00 15:00 23:00 07:00 15:00 23:00 Intake Total 240 ml 466 ml 480 ml 240 ml Output Total 300 ml 400 ml 450 ml Balance -60 ml 66 ml 480 ml 240 ml -450 ml Intake Oral 240 ml 341 ml 480 ml 240 ml IV Total 125 ml Output Urine Total 300 ml 400 ml 450 ml # Voids 2 1 2 # Bowel Movements 6 1 3 2 Result Diagram: 09/23/16 1413 09/23/16 1413 Imaging Last Impressions Abdomen/Pelvis CT 09/22/16 0141 Signed Impressions: Service Date/Time: Thursday, September 22, 2016 02:25 - CONCLUSION: No acute intra-abdominal/pelvic pathology. Chago Hill MD Head CT 09/22/16 0011 Signed Impressions: Service Date/Time: Thursday, September 22, 2016 00:44 - CONCLUSION: 1. No focal or acute intracranial hemorrhage. 2. Decreased density right occipital lobe suggestive of a subacute to old infarct. 3. Decreased density in the left basal ganglia suggestive of a subacute to old infarct. 4. Recommend MRI of the brain with and without contrast on a nonemergent basis. Chago Hill MD Chest X-Ray 09/22/1610 Signed Impressions: Service Date/Time: Thursday, September 22, 2016 00:16 - CONCLUSION: 1. No acute pulmonary infiltrates. 2. Prominent cardiomegaly. Chago Hill MD Brain MRI 09/22/16 0000 Signed Impressions: Service Date/Time: Thursday, September 22, 2016 09:27 - CONCLUSION: 1. Remote infarct left basal ganglia. 2. No acute infarct and no acute intracranial abnormality. 3. No infarct right occipital lobe, the abnormality on CT scan is likely artifact. Nikita Brody MD Objective Remarks GENERAL: Alert, oriented 3, NAD. SKIN: Warm and dry. HEAD: Normocephalic. EYES: No scleral icterus. No injection or drainage. NECK: Supple, trachea midline. No JVD or lymphadenopathy. CARDIOVASCULAR: Regular rate and rhythm without murmurs, gallops, or rubs. RESPIRATORY: Breath sounds equal bilaterally. No accessory muscle use. GASTROINTESTINAL: Abdomen soft, non-tender, nondistended. MUSCULOSKELETAL: No cyanosis, or edema. BACK: Nontender without obvious deformity. No CVA tenderness. Procedures None A/P Problem List: (1) Syncope ICD Code: R55 Status: Acute (2) A-fib ICD Code: I48.91 Status: Acute (3) Cirrhosis ICD Code: K74.60 Status: Acute (4) Lactic acidosis ICD Code: E87.2 Status: Acute (5) Hepatic encephalopathy ICD Code: K72.90 Status: Acute (6) HTN (hypertension) ICD Code: I10 Status: Acute (7) Non-compliance ICD Code: Z91.19 Status: Acute Assessment and Plan 76-year-old male with a reported PMH of A. fib, HTN, Prostate CA and Cirrhosis who is brought to the ER by EMS secondary to apparent syncopal episode. Patient very poor historian, history obtained from medical record, per report pt visiting from [place], non-compliant w/ meds x2 wks. Daughter called EMS after pt had apparent syncopal episode, details unknown. Upon EMS arrival, pt noted to be in A-fib w/ RVR, HR 130's s/p Cardizem IV, now rate-controlled. Syncope: reported syncopal event at home, witnessed by Daughter, no convulsive activity noted, no incontinence. CT Head image no acute finding, subacute/old right occipital lobe infarct and subacute/old left basal ganglia infarct w/ recommendation for non-emergent MRI Brain. Brain MRI shows remote infarct left basal ganglia, no acute infarct; no infarct right occipital lobe, abnormality seen on CT likely artifact. A-fib:w/ RVR on admission, likely due to Non-compliant w/ meds. Resume home Digoxin and Metoprolol. Check Echo: EF 50-55%, normal wall motion, left atrium mildly dilated. CHADS-VASC 3 given age, hx HTN, and hx vascular disease. Patient was apparently on warfarin before. However, his doctors discontinued warfarin. Daughter is supposed to contact his sybase developer regarding re- starting Warfarin. Cirrhosis: h/o Chronic Cirrhosis, unclear etiology. Non-compliant w/ meds x2 wks. Resumed home Aldactone, Lasix and Lactulose. - Will switch to Lasix 20mg BID. Will consider increasing Aldactone to 100mg Qday. Hepatic Encephalopathy: Pt noted to be confused, ammonia 145, off meds x2 wks as above. Resumed home Lactulose q6h, hold for loose stool. Continue Neuro checks. Add Rifaximin. - Patient appears to be back to his baseline. Alert, coherent thought process. Lactic Acidosis: Lactate 2.6. Unclear etiology. No evidence of sepsis. IVF, repeat lactate improving, 1.9. HTN: Normotensive. Continue Metoprolol 50mg BID, Spironolactone. Probable UTI - Patient's Urine cx growing Group D Enterococcus. Sensitivity pending. Full code. Ambulation. Probable discharge on 09/25/2016. Ginny Han DO September 24, 2016 1:55 pm
[2016-09-24] MEDS: FUROSEMIDE 20 MG TAB PO SCH (17:31)
[2016-09-25] VITALS: BP 138/84; PULSE 93; RESP 17; TEMP 96.7; O2SAT 97
[2016-09-25 04:00] VITALS: BP 115/72; PULSE 82; RESP 17; TEMP 96.5; O2SAT 96
[2016-09-25] MEDS: LACTULOSE SYRUP 20 GM/30 ML CUP PO SCH ×4 (05:51→18:00)
[2016-09-25 08:00] VITALS: BP 119/93; PULSE 78; RESP 18; TEMP 98; O2SAT 97
--- NOTE | 2016-09-25 08:16 | PQ ---
Physician Query Response Document PATIENT: AYANNA LILLY : 1940 ADMIT DATE: 09/22/2016 3:20 AM DISCH DATE: RESPONDING PROVIDER #: [email or web address] QUERY TEXT: Clarification of Clinical Diagnostic Findings Please clarify documentation or clinical relevance for the clinical / diagnostic findings: UA is significant for bacteria and leuk est SUCH : 1) URINARY TRACT INFECTION 2) NO URINARY TRACT INFECTION 3) OTHER, PLEASE EXPLAIN PLEASE CALL [facility] [id number] FOR ASSISTANCE The patient's Clinical Indicators include: PER ADDENDUM NOTE 09/23/16: UA is significant for bacteria and leuk est. I have started the patient on rocephin 1 g daily. 09/22/16 URINE CULTURE SHOWS GROUP D ENTEROCOCCUS Query created by: Brenda Smith on 09/24/2016 2:11 PM RESPONSE TEXT: Urinary tract infection due to Enterococcus Faecalis Electronically signed by: Valeriy Han DO 09/25/2016 8:12 AM
[2016-09-25] MEDS ORDERED: AMOX875T PO (09:30)
[2016-09-25] MEDS ORDERED: XIFA550T4 PO (09:30)
[2016-09-25] MEDS: METOPROLOL TARTRATE 50 MG TAB PO SCH ×2 (10:20→20:39)
[2016-09-25] MEDS: SPIRONOLACTONE 50 MG TAB PO SCH (10:20)
[2016-09-25] MEDS: FUROSEMIDE 20 MG TAB PO SCH ×2 (10:20→18:00)
[2016-09-25] MEDS: DIGOXIN 0.125 MG TAB PO SCH (10:21)
[2016-09-25] MEDS: SODIUM CHLORIDE 0.9% FLUSH 10 ML FLUSH IV FLUSH SCH ×2 (10:21→20:39)
[2016-09-25] MEDS: RIFAXIMIN 550 MG TAB PO SCH ×2 (10:21→20:38)
--- NOTE | 2016-09-25 11:32 | HHI.DS ---
Discharge Summary Admission Date September 22, 2016 at 3:20 am Discharge Date: September 25, 2016 Admitting Diagnosis hyperammonemia, A. fib, hypertension, medication noncompliance (1) Syncope ICD Code: R55 Diagnosis: Principal (2) A-fib ICD Code: I48.91 (3) Cirrhosis ICD Code: K74.60 (4) Lactic acidosis ICD Code: E87.2 (5) Hepatic encephalopathy ICD Code: K72.90 (6) HTN (hypertension) ICD Code: I10 (7) Non-compliance ICD Code: Z91.19 (8) Acute respiratory failure with hypoxia ICD Code: J96.01 Diagnosis: Principal (9) UTI (urinary tract infection) due to Enterococcus ICD Code: N39.0 Diagnosis: Principal Procedures None Brief History - From Admission This is a 76-year-old male with a reported PMH of A. fib, HTN, Prostate CA and Cirrhosis who is brought to the ER by EMS secondary to apparent syncopal episode. Patient very poor historian, history obtained from medical record, per report pt visiting from [place], non-compliant w/ meds x2 wks. Daughter called EMS after pt had apparent syncopal episode, details unknown. Upon EMS arrival, pt noted to be in A-fib w/ RVR, HR 130's s/p Cardizem IV, now rate-controlled. On arrival, BP 109/81, HR 67, O2 sat 96% on RA, Afebrile. CBC unremarkable except for platelets 117, neutrophils 80, no previous labs for comparison. Lactic Acid 2.6. Ammonia 132. INR 1.6. 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 CXR with no acute findings. CT Abd/Pelvis negative for intra-abdominal pathology. CBC/BMP: 09/23/16 1413 09/23/16 1413 Significant Findings Laboratory Tests Test 09/23/16 14:13 Platelet Count 95 TH/MM3 (150-450) Neutrophils (%) (Auto) 84.1 % (16.0-70.0) Lymphocytes (%) (Auto) 5.0 % (9.0-44.0) Monocytes (%) (Auto) 10.5 % (0.0-8.0) Neutrophils # (Auto) 8.2 TH/MM3 (1.8-7.7) Lymphocytes # (Auto) 0.5 TH/MM3 (1.0-4.8) Monocytes # (Auto) 1.0 TH/MM3 (0-0.9) Platelet Estimate LOW (NORMAL) Prothrombin Time 19.5 SEC (9.8-11.6) Carbon Dioxide Level 35.4 MEQ/L (21.0-32.0) Estimat Glomerular Filtration 87 ML/MIN (>89) Rate Random Glucose 110 MG/DL (74-106) Calcium Level 8.3 MG/DL (8.5-10.1) Total Bilirubin 2.1 MG/DL (0.2-1.0) Aspartate Amino Transf 52 U/L (15-37) (AST/SGOT) Ammonia 91 MCMOL/L (11-32) Total Protein 5.9 GM/DL (6.4-8.2) Albumin 2.4 GM/DL (3.4-5.0) PE at Discharge GENERAL: Alert, oriented 3, NAD. SKIN: Warm and dry. HEAD: Normocephalic. EYES: No scleral icterus. No injection or drainage. NECK: Supple, trachea midline. No JVD or lymphadenopathy. CARDIOVASCULAR: Regular rate and rhythm without murmurs, gallops, or rubs. RESPIRATORY: Breath sounds equal bilaterally. No accessory muscle use. GASTROINTESTINAL: Abdomen soft, non-tender, nondistended. MUSCULOSKELETAL: No cyanosis, or edema. BACK: Nontender without obvious deformity. No CVA tenderness. Pt update on day of discharge Patient is doing well. No acute concerns. Denies any fever, chills. Walk test indicated need for home O2. Hospital Course 76-year-old male with a reported PMH of A. fib, HTN, Prostate CA and Cirrhosis who is brought to the ER by EMS secondary to apparent syncopal episode. Patient very poor historian, history obtained from medical record, per report pt visiting from [place], non-compliant w/ meds x2 wks. Daughter called EMS after pt had apparent syncopal episode, details unknown. Upon EMS arrival, pt noted to be in A-fib w/ RVR, HR 130's s/p Cardizem IV, now rate-controlled. Syncope: reported syncopal event at home, witnessed by Daughter, no convulsive activity noted, no incontinence. CT Head image no acute finding, subacute/old right occipital lobe infarct and subacute/old left basal ganglia infarct w/ recommendation for non-emergent MRI Brain. Brain MRI shows remote infarct left basal ganglia, no acute infarct; no infarct right occipital lobe, abnormality seen on CT likely artifact. A-fib:w/ RVR on admission, likely due to Non-compliant w/ meds. Resume home Digoxin and Metoprolol. Check Echo: EF 50-55%, normal wall motion, left atrium mildly dilated. CHADS-VASC 3 given age, hx HTN, and hx vascular disease. Patient was apparently on warfarin before. However, his doctors discontinued warfarin. Daughter is supposed to contact his chestnut tanner regarding re- starting Warfarin. Cirrhosis: h/o Chronic Cirrhosis, unclear etiology. Non-compliant w/ meds x2 wks. Resumed home Aldactone, Lasix and Lactulose. - Will switch to Lasix 20mg BID. Will consider increasing Aldactone to 100mg Qday. Hepatic Encephalopathy: Pt noted to be confused, ammonia 145, off meds x2 wks as above. Resumed home Lactulose q6h, hold for loose stool. Continue Neuro checks. Add Rifaximin. - Patient appears to be back to his baseline. Alert, coherent thought process. Lactic Acidosis: Lactate 2.6. Unclear etiology. No evidence of sepsis. IVF, repeat lactate improving, 1.9. HTN: Normotensive. Continue Metoprolol 50mg BID, Spironolactone. Probable UTI - Patient's Urine cx growing Group D Enterococcus. Patient received Unasyn. We will discharge him on Amoxicillin on discharge. Acute respiratory failure with hypoxia - Walk test indicates need for O2. Home O2 arranged prior to discharge. Full code. Ambulation. Pt Condition on Discharge: Good Discharge Disposition: Discharge Home Discharge Time: > 30 minutes Discharge Instructions Follow up Referrals: PCP Follow-up - 1 Week New Medications: Amoxicillin (Amoxicillin) 875 Mg Tab 875 MG PO BID Infection #20 Ref 0 TAB Oxygen tank (Oxygen tank) 1 Ea Tank 2 LITER RODOLFO.CANULA CONTINUOUS Oxygen Concentrator Portable Gaseous 2 L/min via Nasal Cannula Continuous For 99 months HYPOXEMIA PREVENTION #1 CYLINDER Rifaximin (Xifaxan) 550 Mg Tab 550 MG PO BID Hepatic encephalopathy #60 TAB Changed Medications: Furosemide (Furosemide) 20 Mg Tab 20 MG PO BID Fluid #60 Ref 0 TAB (Changed from: DAILY; 30) Continued Medications: Digoxin (Digoxin) 0.125 Mg Tab 0.125 MG PO DAILY Regulate Heart Beat #30 Ref 0 TAB Gabapentin (Gabapentin) 100 Mg Cap 100 MG PO BID #60 Ref 0 CAP Lactulose Liq (Lactulose Liq) 10 Gm/15 Ml Soln 30 ML PO Q6H Ref 0 ML Metoprolol Tartrate (Metoprolol Tartrate) 50 Mg Tab 50 MG PO BID #60 Ref 0 TAB Oxycodone (Oxycodone) 5 Mg Cap 5 MG PO Q8H PRN PAIN Ref 0 CAP Spironolactone (Spironolactone) 50 Mg Tab 50 MG PO DAILY #30 Ref 0 TAB Tamsulosin (Flomax) 0.4 Mg Cap 0.4 MG PO HS Manage Prostate Problems #30 Ref 0 CAP Tizanidine (Tizanidine) 2 Mg Tab 2 MG PO BID Muscle Spasm Ref 0 TAB Ginny Han DO September 25, 2016 11:32
[2016-09-25] MEDS ORDERED: OXYGENTANK NAS.CANULA (11:33)
[2016-09-25] MEDS ORDERED: FURO20TA PO (11:34)
[2016-09-25 12:00] VITALS: BP 95/76; PULSE 69; RESP 18; TEMP 96.6; O2SAT 98
[2016-09-25] MEDS: AMOXICILLIN 875 MG TAB PO SCH ×2 (14:34→20:38)
[2016-09-25 16:00] VITALS: BP 133/83; PULSE 73; RESP 18; TEMP 97.6; O2SAT 95
[2016-09-25 20:50] VITALS: BP 158/95; PULSE 62; RESP 18; O2SAT 96
== END 2016-09-25 20:55 | disposition home or self-care (01) | DRG 442 ==
LOC: NEPE 23:53 → NEDA 09-22 03:20 → OBSVTOIN 09-22 03:20 → NEPGCP 09-22 04:36 → HOCB 09-22 16:20
PROVIDERS: ADMIT Hospitalist; ATTEND Hospitalist
DX: K72.90 Hepatic failure, unspecified without coma (principal); E87.2 Acidosis; N39.0 Urinary tract infection, site not specified; I48.91 Unspecified atrial fibrillation; K74.60 Unspecified cirrhosis of liver; I10 Essential (primary) hypertension; R09.02 Hypoxemia; B95.2 Enterococcus as the cause of diseases classified elsewhere; Z91.14 Patient's other noncompliance with medication regimen
CPT/HCPCS: 70450; 70553; 71010; 74177; 80053; 81001; 82140; 83605; 83690; 85025; 85610; 85730; 87077; 87086; 87186; 93005; 93306; 94620; 96374; 96375; A9579; J0696; J1170; J1940; J2405; J3411; Q9967

== ENCOUNTER → 2016-10-04 | Outpatient (CLI) | payer MEDICARE ==
[~2016-10-04] MED LIST: AMOX875T PO; DIGO0.12 PO; FURO20TA PO; GABA100C4 PO; LACT10SO PO; METO50TA PO; OXYC1CAP PO; OXYGENTANK NAS.CANULA; SPIR50TA PO; TAMS5CAP PO; TIZA2TAB PO; XIFA550T4 PO
[2016-10-04 09:50] LABS: AUTOMATED NEUTROPHIL # 2.9 TH/MM3 (1.8-7.7); BASOPHIL % 0.7 % (0.0-2.0); EOSINOPHIL # 0.1 TH/MM3 (0-0.4); EOSINOPHIL % 1.9 % (0.0-4.0); HEMATOCRIT 45.4 % (39.0-51.0); HEMO FLAGS DIFF FINAL; LYMPH % 29.6 % (9.0-44.0); LYMPHOCYTE # 1.6 TH/MM3 (1.0-4.8); MEAN CELL VOLUME 95.8 FL (80.0-100.0); MEAN CORPUSCULAR HEMOGLOBIN 31.5 PG (27.0-34.0); MEAN CORPUSCULAR HGB CONC 32.9 % (32.0-36.0); MONO % 12.6 % (0.0-8.0); NEUT % 55.2 % (16.0-70.0); PLATELET COUNT 133 TH/MM3 (150-450); RED BLOOD COUNT 4.75 MIL/MM3 (4.50-5.90); RED CELL DISTRIBUTION WIDTH 15.9 % (11.6-17.2); WHITE BLOOD COUNT 5.3 TH/MM3 (4.0-11.0)
[2016-10-04 10:24] LABS: ANION GAP 8 MEQ/L (5-15); BLOOD UREA NITROGEN 8 MG/DL (7-18); CHLORIDE 99 MEQ/L (98-107); GLOMERULAR FILTRATION RATE 99 ML/MIN (>89); GLUCOSE,FASTING 76 MG/DL (74-99); POTASSIUM 4.1 MEQ/L (3.5-5.1); SODIUM (NA) 141 MEQ/L (136-145)
[2016-10-04 10:33] LABS: BLOOD, URINE NEG (NEG); COMMENT (UR) CULT NOT INDICATED; CULTURE IF INDICATED CULT NOT INDICATED; GLUCOSE,URINE NEG (NEG); HYALINE CAST, URINE 9 /lpf (RARE); KETONE, URINE NEG (NEG); MUCUS URINE FEW /lpf (OCC); NITRITE,URINE NEG (NEG); SQUAMOUS EPITHELIAL CELL URINE 1 /hpf (0-5); URINE COLOR YELLOW (YELLW/STRAW)
[2016-10-04 10:38] LABS: ALKALINE PHOSPHATASE 117 U/L (45-117)
[2016-10-04 10:39] LABS: ALT (GPT) 31 U/L (12-78); AST (GOT) 34 U/L (15-37); DIGOXIN 0.3 NG/ML (0.8-2.0); FREE T4 0.81 NG/DL (0.76-1.46); HDL CHOLESTEROL 45.7 MG/DL (40.0-60.0); LDL CHOLESTEROL 86 MG/DL (0-99); TOTAL BILIRUBIN ADULT 2.4 MG/DL (0.2-1.0)
== END ==
LOC: CLAB 09:15
PROVIDERS: ATTEND Family Medicine
DX: K72.90 Hepatic failure, unspecified without coma (principal); I48.91 Unspecified atrial fibrillation; E78.5 Hyperlipidemia, unspecified
CPT/HCPCS: 36415; 80053; 80061; 80162; 81001; 82140; 84439; 84443; 85025

== ENCOUNTER 2016-12-02 17:59 | Inpatient (IN) | payer MEDICARE ==
[~2016-12-02] VITALS: Ht 170.2 cm; Wt 98.4 kg
[2016-12-02 18:12] VITALS: BP 124/90; PULSE 90; RESP 21; TEMP 98.5; O2SAT 97
[2016-12-02] MEDS ORDERED: LACTULOSE SYRUP 20 GM/30 ML CUP PO ONE (18:15)
[2016-12-02 18:24] VITALS: O2SAT 96
--- NOTE | 2016-12-02 18:34 | PD ---
HPI Chief Complaint: Altered Mental Status Time Seen by Provider: 18:30 Travel History International Travel<30 days: No Contact w/Intl Traveler<30days: No Traveled to known affect area: No History of Present Illness HPI 76-year-old male that presents to the ED for evaluation of altered mental status. Patient comes here by ambulance for evaluation of this. Patient hasn' t known history of A. fib as well as cirrhosis and was recently admitted in September for similar. Patient apparently is noncompliant with his lactulose which she states he does not like to take. Apparently per daughter who takes care of the patient his just been more confused and more lethargic. Patient in examination is able to answer some basic questions but he does appear to be altered so history is somewhat difficult to obtain. Patient states having urinary issues secondary to prostate issues. He does apparently have a history of prostate cancer. He denies any chest pain or abdominal pain. No bowel movement issues. He states that he has difficulty urinating secondary to prostate issues. Allergy to codeine. Unclear if patient takes any blood thinners. No fevers chills or sweats. No signs of head injury. Family members not present on initial presentation. Most of the history is obtained from ambulance as well as ED nurse report. PFSH Past Medical History Atrial Fibrillation: Yes Heart Rhythm Problems: Yes (AFIB) Cancer: Yes (Prostate cancer) Cardiovascular Problems: Yes (afib rvr) High Cholesterol: Yes Cirrhosis: Yes Gastrointestinal Disorders: Yes Genitourinary: No Hypertension: Yes Implanted Vascular Access Dvce: No Musculoskeletal: Yes Neurologic: No Psychiatric: No Respiratory: No Immunizations Current: Yes Influenza Vaccination: Yes Past Surgical History Other Surgery: Yes (unknown prostate procedure) Social History Alcohol Use: No Tobacco Use: No Substance Use: No Allergies-Medications (Allergen,Severity, Reaction): Coded Allergies: Codeine (Verified Adverse Reaction, Intermediate, Dizziness, 12/02/16) Reported Meds & Prescriptions Reported Meds & Active Scripts Active Furosemide 20 Mg Tab 20 Mg PO BID Oxygen tank (Oxygen) 1 Ea Tank 2 Liter RODOLFO.CANULA CONTINUOUS Oxygen Concentrator Portable Gaseous 2 L/min via Nasal Cannula Continuous For 99 months Xifaxan (Rifaximin) 550 Mg Tab 550 Mg PO BID Amoxicillin 875 Mg Tab 875 Mg PO BID Reported Flomax (Tamsulosin HCl) 0.4 Mg Cap 0.4 Mg PO HS Spironolactone 50 Mg Tab 50 Mg PO DAILY Oxycodone (Oxycodone HCl) 5 Mg Cap 5 Mg PO Q8H PRN Gabapentin 100 Mg Cap 100 Mg PO BID Tizanidine (Tizanidine HCl) 2 Mg Tab 2 Mg PO BID Lactulose Liq (Lactulose) 10 Gm/15 Ml Soln 30 Ml PO Q6H Digoxin 0.125 Mg Tab 0.125 Mg PO DAILY Metoprolol Tartrate 50 Mg Tab 50 Mg PO BID Review of Systems ROS Limitations: Altered Mental Status Except as stated in HPI: all other systems reviewed are Neg Physical Exam Exam Limitations: Altered Mental Status Narrative GENERAL: SKIN: Warm and dry. HEAD: Atraumatic. Normocephalic. EYES: Pupils equal and round 4 mm reactive to light and accommodation. No scleral icterus. No injection or drainage. ENT: No nasal bleeding or discharge. Mucous membranes pink and moist. Tongue is midline. No uvula deviation. NECK: Trachea midline. No JVD. CARDIOVASCULAR: Regular rate and rhythm. No murmurs, S3, S4. RESPIRATORY: No accessory muscle use. Clear to auscultation. Breath sounds equal bilaterally. GASTROINTESTINAL: Abdomen soft, non-tender, nondistended. Hepatic and splenic margins not palpable. MUSCULOSKELETAL: Extremities without clubbing, cyanosis, or edema. No obvious deformities. Full range of motion of the upper and lower extremities bilaterally. 2+ pulses bilaterally. NEUROLOGICAL: Awake and alert and oriented to person and place. No obvious cranial nerve deficits. Motor grossly within normal limits. Five out of 5 muscle strength in the arms and legs. Normal speech. PSYCHIATRIC: Appropriate mood and affect; insight and judgment normal. Data Data Last Documented VS Vital Signs Date Time Temp Pulse Resp B/P Pulse Ox O2 Delivery O2 Flow Rate FiO2 12/02/16 19:17 85 18 127/69 99 Room Air 12/02/16 18:12 98.5 Orders Electrocardiogram (12/02/16 18:11) Complete Blood Count With Diff (12/02/16 18:11) Comprehensive Metabolic Panel (12/02/16 18:11) Troponin I (12/02/16 18:11) Prothrombin Time / Inr (Pt) (12/02/16 18:11) Act Partial Throm Time (Ptt) (12/02/16 18:11) Blood Culture (12/02/16 18:11) Lipase (12/02/16 18:11) Urinalysis - C+S If Indicated (12/02/16 18:11) Magnesium (Mg) (12/02/16 18:11) Ammonia (12/02/16 18:11) Thyroid Stimulating Hormone (12/02/16 18:11) Chest, Single Ap (12/02/16 18:11) Ct Brain W/O Iv Contrast(Rout) (12/02/16 18:11) Iv Access Insert/Monitor (12/02/16 18:11) Ecg Monitoring (12/02/16 18:11) Oximetry (12/02/16 18:11) Lactulose Liq (Lactulose Liq) (12/02/16 18:15) Cath For Specimen (12/02/16 18:30) Lactic Acid (12/02/16 18:37) Digoxin (12/02/16 19:21) Place In Observation (12/02/16 ) Vital Signs (Adult) Q4H (12/02/16 19:37) Neuro Checks Q4H (12/02/16 19:37) Activity Oob With Assistance (12/02/16 19:37) Intake + Output WU.QSHIFT (12/02/16 19:37) Diet Regular Basic (12/03/16 Breakfast) Sodium Chloride 0.9% Flush (Ns Flush) (12/02/16 19:45) Sodium Chloride 0.9% Flush (Ns Flush) (12/02/16 21:00) Ondansetron Inj (Zofran Inj) (12/02/16 19:45) Comprehensive Metabolic Panel (12/03/16 06:00) Complete Blood Count With Diff (12/03/16 06:00) Pt Request For Service (12/02/16 19:37) Scd Bilateral/Knee High WU.BID (12/02/16 19:37) Lázaro Bilateral/Knee High WU.QSHIFT (12/02/16 19:37) Oxycodone (Roxicodone) (12/02/16 19:45) Oxycodone (Roxicodone) (12/02/16 19:45) Docusate Sodium-Senna (Berna-Colace) (12/02/16 21:00) Magnesium Hydroxide Liq (Milk Of Magnesi (12/02/16 19:45) Sennosides (Senokot) (12/02/16 19:45) Bisacodyl Supp (Dulcolax Supp) (12/02/16 19:45) Lactulose Liq (Lactulose Liq) (12/02/16 19:45) Digoxin (Lanoxin) (12/03/16 09:00) Furosemide (Lasix) (12/02/16 21:00) Lactulose Liq (Lactulose Liq) (12/02/16 19:45) Metoprolol Tartrate (Lopressor) (12/02/16 21:00) Rifaximin (Xifaxan) (12/02/16 21:00) Spironolactone (Aldactone) (12/03/16 09:00) Tizanidine Hcl (Zanaflex) (12/02/16 21:00) Admit Order (Ed Use Only) (12/02/16 19:51) Labs Laboratory Tests Test 12/02/16 18:15 White Blood Count 7.2 TH/MM3 Red Blood Count 5.09 MIL/MM3 Hemoglobin 17.8 GM/DL Hematocrit 49.8 % Mean Corpuscular Volume 97.8 FL Mean Corpuscular Hemoglobin 34.9 PG Mean Corpuscular Hemoglobin 35.7 % Concent Red Cell Distribution Width 14.4 % Platelet Count 129 TH/MM3 Mean Platelet Volume 9.3 FL Neutrophils (%) (Auto) 59.6 % Lymphocytes (%) (Auto) 26.7 % Monocytes (%) (Auto) 11.9 % Eosinophils (%) (Auto) 1.6 % Basophils (%) (Auto) 0.2 % Neutrophils # (Auto) 4.3 TH/MM3 Lymphocytes # (Auto) 1.9 TH/MM3 Monocytes # (Auto) 0.9 TH/MM3 Eosinophils # (Auto) 0.1 TH/MM3 Basophils # (Auto) 0.0 TH/MM3 CBC Comment DIFF FINAL Differential Comment Prothrombin Time 15.3 SEC Prothromb Time International 1.4 RATIO Ratio Activated Partial 24.6 SEC Thromboplast Time Sodium Level 140 MEQ/L Potassium Level 4.2 MEQ/L Chloride Level 105 MEQ/L Carbon Dioxide Level 27.0 MEQ/L Anion Gap 8 MEQ/L Blood Urea Nitrogen 17 MG/DL Creatinine 1.13 MG/DL Estimat Glomerular Filtration 63 ML/MIN Rate Random Glucose 108 MG/DL Lactic Acid Level 2.5 mmol/L Calcium Level 9.1 MG/DL Magnesium Level 2.1 MG/DL Total Bilirubin 2.7 MG/DL Aspartate Amino Transf 49 U/L (AST/SGOT) Alanine Aminotransferase 40 U/L (ALT/SGPT) Alkaline Phosphatase 125 U/L Ammonia 168 MCMOL/L Troponin I LESS THAN 0.02 NG/ML Total Protein 7.1 GM/DL Albumin 3.0 GM/DL Lipase 253 U/L Thyroid Stimulating Hormone 0.585 uIU/ML [address] [place] [address] Medical Decision Making Medical Screen Exam Complete: Yes Emergency Medical Condition: Yes Medical Record Reviewed: Yes Interpretation(s) CBC & BMP Diagram 12/02/16 18:[address] 12/02/161810 Signed Impressions: Service Date/Time: Friday, December 02, 2016 18:54 - CONCLUSION: 1. Nonspecific white matter changes. 2. No acute intracranial abnormality. Nikita Brody MD Chest X-Ray 12/02/161810 Signed Impressions: Service Date/Time: Friday, December 02, 2016 18:31 - CONCLUSION: 1. Bibasilar atelectasis. 2. Cardiomegaly. Nikita Brody MD lactic acid of 2.5 LFTs within normal limits. Ammonia elevated in the 160s Troponin and CK-MB negative. EKG shows atrial fibrillation but not RVR. No sign of ischemia read by me and attending. Differential Diagnosis Altered mental status versus cirrhosis versus hyperammonemia versus encephalopathy versus lactic acidosis versus noncompliant versus sepsis Narrative Course 76-year-old male that presents to the ED for evaluation of altered mental status. Patient was properly examined and was found to have signs and symptoms consistent appears to be likely hyperammonemia with hepatic encephalopathy. Labs and imaging ordered. Patient was given lactulose here. Labs and imaging showed elevated ammonia as well as lactic acidosis. Patient still confused. At this time I recommend admission for further management of the hepatic encephalopathy. Likely from not taking his medications. Case was discussed with Dr. Hsu agrees to admission. Patient was admitted as an obs. Diagnosis Primary Impression: Hepatic encephalopathy Additional Impressions: Lactic acidosis Non-compliance Cirrhosis Qualified Code: K70.30 - Alcoholic cirrhosis of liver without ascites Admitting Information Admitting Physician Requests: Madhuri Khan,Franco PA Dec 02, 2016 18:34
[2016-12-02 18:36] LABS: AUTOMATED NEUTROPHIL # 4.3 TH/MM3 (1.8-7.7); BASOPHIL % 0.2 % (0.0-2.0); EOSINOPHIL # 0.1 TH/MM3 (0-0.4); EOSINOPHIL % 1.6 % (0.0-4.0); HEMATOCRIT 49.8 % (39.0-51.0); HEMO FLAGS DIFF FINAL; LYMPH % 26.7 % (9.0-44.0); LYMPHOCYTE # 1.9 TH/MM3 (1.0-4.8); MEAN CELL VOLUME 97.8 FL (80.0-100.0); MEAN CORPUSCULAR HEMOGLOBIN 34.9 PG (27.0-34.0); MEAN CORPUSCULAR HGB CONC 35.7 % (32.0-36.0); MONO % 11.9 % (0.0-8.0); NEUT % 59.6 % (16.0-70.0); PLATELET COUNT 129 TH/MM3 (150-450); RED BLOOD COUNT 5.09 MIL/MM3 (4.50-5.90); RED CELL DISTRIBUTION WIDTH 14.4 % (11.6-17.2); WHITE BLOOD COUNT 7.2 TH/MM3 (4.0-11.0)
--- NOTE | 2016-12-02 18:45 | RADRPT ---
EXAM DATE/TIME: 12/02/2016 18:31 [facility] COMPARISON: CHEST SINGLE AP, September 22, 2016, 0:16. INDICATIONS : Shortness of breath. MEDICAL HISTORY : None. SURGICAL HISTORY : None. ENCOUNTER: Initial ACUITY: 1 day PAIN SCORE: 0/10 LOCATION: Bilateral chest FINDINGS: A single view of the chest demonstrates bibasilar atelectasis. Cardiomegaly. Mediastinum unremarkable . Osseous structures are intact. CONCLUSION: 1. Bibasilar atelectasis. 2. Cardiomegaly. Nikita Brody MD on December 02, 2016 at 18:43 Board Certified Radiologist. This report was verified electronically.
[2016-12-02 18:46] LABS: APTT (PATIENT) 24.6 SEC (24.3-30.1); INTERNATIONAL NORMALIZED RATIO 1.4 RATIO; PROTHROMBIN TIME - PATIENT 15.3 SEC (9.8-11.6)
[2016-12-02 19:09] LABS: ANION GAP 8 MEQ/L (5-15); AST (GOT) 49 U/L (15-37); BLOOD UREA NITROGEN 17 MG/DL (7-18); CHLORIDE 105 MEQ/L (98-107); GLOMERULAR FILTRATION RATE 63 ML/MIN (>89); MAGNESIUM 2.1 MG/DL (1.5-2.5); POTASSIUM 4.2 MEQ/L (3.5-5.1); SODIUM (NA) 140 MEQ/L (136-145)
--- NOTE | 2016-12-02 19:09 | RADRPT ---
EXAM DATE/TIME: 12/02/2016 18:54 [facility] COMPARISON: MRI BRAIN W & W/O CONTRAST, September 22, 2016, 9:27. CT BRAIN W/O CONTRAST, September 22, 2016, 0:44. INDICATIONS : Altered mental status; ETOH. RADIATION DOSE: 56.35 CTDIvol (mGy) MEDICAL HISTORY : Cardiovascular disease. Hypertension. Carcinoma, prostate.Cirrhosis SURGICAL HISTORY : None. ENCOUNTER: Initial ACUITY: 1 day PAIN SCALE: 0/10 LOCATION: cranial TECHNIQUE: Multiple contiguous axial images were obtained of the head. Using automated exposure control and adj ustment of the mA and/or kV according to patient size, radiation dose was kept as low as reasonably a chievable to obtain optimal diagnostic quality images. DICOM format image data is available electro nically for review and comparison. FINDINGS: CEREBRUM: The ventricles are normal for age. Scattered areas of low attenuation throughout the white matter. Re mote infarct left basal ganglia. No evidence of midline shift, mass lesion, hemorrhage or acute infar ction. No extra-axial fluid collections are seen. POSTERIOR FOSSA: The cerebellum and brainstem are intact. The 4th ventricle is midline. The cerebellopontine angle i s unremarkable. EXTRACRANIAL: The visualized portion of the orbits is intact. SKULL: The calvaria is intact. No evidence of skull fracture. CONCLUSION: 1. Nonspecific white matter changes. 2. No acute intracranial abnormality. Nikita Brody MD on December 02, 2016 at 19:06 Board Certified Radiologist. This report was verified electronically.
[2016-12-02 19:12] LABS: ALKALINE PHOSPHATASE 125 U/L (45-117); ALT (GPT) 40 U/L (12-78); TOTAL BILIRUBIN ADULT 2.7 MG/DL (0.2-1.0)
[2016-12-02 19:17] VITALS: BP 127/69; PULSE 85; RESP 18; O2SAT 99
--- NOTE | 2016-12-02 19:39 | HHI.HP ---
[facility] Admission Diagnosis Diagnoses: (1) Hepatic encephalopathy Diagnosis: Principal (2) Cirrhosis Diagnosis: Principal (3) Non-compliance Diagnosis: Principal (4) Lactic acidosis Diagnosis: Principal (5) A-fib Diagnosis: Principal (6) HTN (hypertension) Diagnosis: Principal Travel History International Travel<30 Days: No Contact w/Intl Traveler <30 Da: No Traveled to Known Affected Are: No History of Present Illness This is a 76-year-old male with a PMH of HTN, A. fib, Prostate CA, Hyperlipidemia, Cirrhosis and Noncompliance was brought to the ER by EMS secondary to altered mental status noted by family. Daughter is financial processing clerk, noted patient to be more confused than normal. States he is typically noncompliant with his Lactulose, although does take his other medications. History limited from patient secondary to altered mental status. On arrival, BP 124/90, HR 90, O2 sat 97% on RA, Afebrile. CBC at baseline except for hemoconcentration with hemoglobin 17.8. Platelets 129, previously 133 on . GFR 63. Lactic Acid 2.5. LFTs essentially baseline. Ammonia 168. INR 1.4. UA pending. CXR with bibasilar atelectasis. CT Head with no acute findings. S/p Lactulose in ER. Review of Systems Except as stated in HPI: all other systems reviewed are Neg ROS: 14 point review of systems otherwise negative. Past Family Social History Past Medical History PMH: HTN, A. fib, Prostate CA, Hyperlipidemia, Cirrhosis and Noncompliance Past Surgical History PAST SURGICAL HISTORY: Prostate Surgery Allergies: Coded Allergies: Codeine (Verified Adverse Reaction, Intermediate, Dizziness, 12/02/16) Family History PAST FAMILY HISTORY: Reviewed. No h/o DM or CAD Social History PAST SOCIAL HISTORY: Negative for alcohol, tobacco or drugs. Physical Exam Vital Signs Vital Signs Date Time Temp Pulse Resp B/P Pulse Ox O2 Delivery O2 Flow Rate FiO2 12/02/16 19:17 85 18 127/69 99 Room Air 12/02/16 18:24 96 Room Air 12/02/16 18:12 98.5 90 21 124/90 97 Room Air Physical Exam PE: GENERAL: Elderly male in no acute distress. Slightly more alert and answering few questions HEENT: PERRLA, EOMI. No scleral icterus or conjunctival pallor. No lid lag or facial droop. CARDIOVASCULAR: Regular rate and rhythm. No obvious murmurs to auscultation. No chest tenderness to palpation. RESPIRATORY: No obvious rhonchi or wheezing. Clear to auscultation. Breath sounds equal bilaterally. GASTROINTESTINAL: Abdomen soft, non-tender, nondistended. BS normal. MUSCULOSKELETAL: Extremities without clubbing, cyanosis, or edema. No obvious deformities. NEUROLOGICAL: Awake, alert and oriented x2, person/place. No focal neurologic deficits. Moving both upper and lower extremities spontaneously. Laboratory Laboratory Tests Test 12/02/16 18:15 White Blood Count 7.2 Red Blood Count 5.09 Hemoglobin 17.8 Hematocrit 49.8 Mean Corpuscular Volume 97.8 Mean Corpuscular Hemoglobin 34.9 Mean Corpuscular Hemoglobin 35.7 Concent Red Cell Distribution Width 14.4 Platelet Count 129 Mean Platelet Volume 9.3 Neutrophils (%) (Auto) 59.6 Lymphocytes (%) (Auto) 26.7 Monocytes (%) (Auto) 11.9 Eosinophils (%) (Auto) 1.6 Basophils (%) (Auto) 0.2 Neutrophils # (Auto) 4.3 Lymphocytes # (Auto) 1.9 Monocytes # (Auto) 0.9 Eosinophils # (Auto) 0.1 Basophils # (Auto) 0.0 CBC Comment DIFF FINAL Differential Comment Prothrombin Time 15.3 Prothromb Time International 1.4 Ratio Activated Partial 24.6 Thromboplast Time Sodium Level 140 Potassium Level 4.2 Chloride Level 105 Carbon Dioxide Level 27.0 Anion Gap 8 Blood Urea Nitrogen 17 Creatinine 1.13 Estimat Glomerular Filtration 63 Rate Random Glucose 108 Calcium Level 9.1 Magnesium Level 2.1 Total Bilirubin 2.7 Aspartate Amino Transf 49 (AST/SGOT) Alanine Aminotransferase 40 (ALT/SGPT) Alkaline Phosphatase 125 Ammonia 168 Troponin I LESS THAN 0.02 Total Protein 7.1 Albumin 3.0 Lipase 253 Thyroid Stimulating Hormone 0.585 3rd Gen Date/Time Procedure Status Source Growth 12/02/16 18:20 Aerobic Blood Culture Received Blood Peripheral Pending 12/02/16 18:20 Anaerobic Blood Culture Received Blood Peripheral Pending Result Diagram: 12/02/16181412/02/161814 Assessment and Plan Problem List: (1) Hepatic encephalopathy ICD Code: K72.90 Status: Acute (2) Cirrhosis ICD Code: K74.60 Status: Acute (3) Non-compliance ICD Code: Z91.19 Status: Acute (4) Lactic acidosis ICD Code: E87.2 Status: Acute (5) A-fib ICD Code: I48.91 Status: Acute (6) HTN (hypertension) ICD Code: I10 Status: Acute Assessment and Plan A/P: 1. Hepatic Encephalopathy: secondary to hyperammonemia from Non-compliance w/ meds. CT Head w/ no acute findings, images reviewed by me. Ammonia 168, s/p Lactulose in ER, will continue w/ Lactulose. Neuro checks q4h 2. Cirrhosis: Unclear etiology, recently moved from [place], living w/ family. LFTs stable in comparison to previous labs. Resume home Lactulose as above, Lasix/Aldactone, Rifaximin. 3. Non-Compliance: per Daughter, pt non-compliant w/ Lactulose, however takes his other medications. Resume Lactulose, stressed importance of medications. 4. Lactic Acidosis: Lactate 2.5, likely secondary to dehydration, no evidence of sepsis. Mild IVF, caution w/ cirrhosis/fluid overload. Repeat Lactate. 5. A-fib: Chronic. Resume home Digoxin, Metoprolol. 6. HTN: Controlled. Will monitor, resume home medications. 7. DVT Prophylaxis: Pharmacologic contraindication secondary to cirrhosis/ coagulopathy. 8. Social work for d/c planning as needed. 9. Case discussed w/ ER physician at length. Problem Qualifiers (1) Cirrhosis: Qualified Code: K70.30 - Alcoholic cirrhosis of liver without ascites Ijeoma Hsu MD Dec 02, 2016 19:39
[2016-12-02] MEDS ORDERED: ONDANSETRON HCL 4 MG/2 ML VIAL IVP PRN (19:45)
[2016-12-02] MEDS ORDERED: LACTULOSE SYRUP 20 GM/30 ML CUP PO PRN (19:45)
[2016-12-02] MEDS ORDERED: SODIUM CHLORIDE 0.9% FLUSH 10 ML FLUSH IV FLUSH PRN (19:45)
[2016-12-02] MEDS ORDERED: BISACODYL 10 MG SUPP RECTAL PRN (19:45)
[2016-12-02] MEDS ORDERED: MAGNESIUM HYDROXIDE SUSP 30 ML CUP PO PRN (19:45)
[2016-12-02] MEDS ORDERED: SENNOSIDES 8.6 MG TAB PO PRN (19:45)
[2016-12-02] MEDS ORDERED: LACTULOSE SYRUP 20 GM/30 ML CUP PO SCH (20:00)
[2016-12-02] MEDS ORDERED: PILL SPLITTER OTHER PRN (20:00)
[2016-12-02 20:11] LABS: BLOOD, URINE NEG (NEG); COMMENT (UR) CULT NOT INDICATED; CULTURE IF INDICATED CULT NOT INDICATED; GLUCOSE,URINE NEG (NEG); KETONE, URINE TRACE mg/dL (NEG); MUCUS URINE FEW /lpf (OCC); NITRITE,URINE NEG (NEG); PH, URINE 6.5 (5.0-8.5); SQUAMOUS EPITHELIAL CELL URINE 2 /hpf (0-5); URINE COLOR YELLOW (YELLW/STRAW)
[2016-12-02] MEDS: FUROSEMIDE 20 MG TAB PO SCH (21:17)
[2016-12-02] MEDS: METOPROLOL TARTRATE 50 MG TAB PO SCH (21:17)
[2016-12-02] MEDS: SODIUM CHLORIDE 0.9% FLUSH 10 ML FLUSH IV FLUSH SCH (21:18)
[2016-12-02 21:22] LABS: DIGOXIN 0.6 NG/ML (0.8-2.0)
--- NOTE | 2016-12-02 21:31 | EKG ---
Date Performed: 12/02/2016 Time Performed: 18:29:58 PTAGE: 76 years EKG: ATRIAL FIBRILLATION BORDERLINE LEFT AXIS DEVIATION NONSPECIFIC ST & T-WAVE ABNORMALITY ABNO RMAL ECG PREVIOUS TRACING : 09/22/2016 06.36 Compared to previous tracing, lateral T wave inversion has improved. DOCTOR: Poli Gómez Interpretating Date/Time 12/02/2016 21:29:16
[2016-12-02 22:30] VITALS: BP 135/83; PULSE 74; RESP 18; TEMP 98; O2SAT 98
[2016-12-02] MEDS: LACTULOSE SYRUP 20 GM/30 ML CUP PO SCH (23:15)
[2016-12-02] MEDS: RIFAXIMIN 550 MG TAB PO SCH (23:28)
[2016-12-02] MEDS: DOCUSATE SODIUM 50 MG/SENNA 8.6 MG TAB PO SCH (23:28)
[2016-12-02 23:55] VITALS: PULSE 74
[2016-12-03] VITALS (7 sets, daily range): BP systolic 105–142; BP diastolic 65–92; PULSE 69–94; RESP 18–22; TEMP 97.3–98.4; O2SAT 95–97
[2016-12-03] MEDS: LACTULOSE SYRUP 20 GM/30 ML CUP PO SCH ×4 (05:34→23:05)
[2016-12-03 07:06] LABS: AUTOMATED NEUTROPHIL # 3.5 TH/MM3 (1.8-7.7); BASOPHIL % 0.4 % (0.0-2.0); EOSINOPHIL # 0.1 TH/MM3 (0-0.4); EOSINOPHIL % 1.8 % (0.0-4.0); HEMATOCRIT 47.5 % (39.0-51.0); HEMO FLAGS DIFF FINAL; LYMPH % 32.4 % (9.0-44.0); LYMPHOCYTE # 2.1 TH/MM3 (1.0-4.8); MEAN CELL VOLUME 98.9 FL (80.0-100.0); MEAN CORPUSCULAR HEMOGLOBIN 34.7 PG (27.0-34.0); MEAN CORPUSCULAR HGB CONC 35.1 % (32.0-36.0); MONO % 11.9 % (0.0-8.0); NEUT % 53.5 % (16.0-70.0); PLATELET COUNT 132 TH/MM3 (150-450); RED CELL DISTRIBUTION WIDTH 14.4 % (11.6-17.2); WHITE BLOOD COUNT 6.6 TH/MM3 (4.0-11.0)
[2016-12-03 07:35] LABS: ALKALINE PHOSPHATASE 112 U/L (45-117); TOTAL BILIRUBIN ADULT 3.1 MG/DL (0.2-1.0)
[2016-12-03 07:39] LABS: ALT (GPT) 35 U/L (12-78); ANION GAP 9 MEQ/L (5-15); AST (GOT) 39 U/L (15-37); BICARBONATE 26.1 MEQ/L (21.0-32.0); BLOOD UREA NITROGEN 17 MG/DL (7-18); CHLORIDE 108 MEQ/L (98-107); GLOMERULAR FILTRATION RATE 79 ML/MIN (>89); POTASSIUM 4.1 MEQ/L (3.5-5.1); SODIUM (NA) 143 MEQ/L (136-145)
[2016-12-03] MEDS: METOPROLOL TARTRATE 50 MG TAB PO SCH ×2 (09:59→23:06)
[2016-12-03] MEDS: SPIRONOLACTONE 50 MG TAB PO SCH (10:00)
[2016-12-03] MEDS: FUROSEMIDE 20 MG TAB PO SCH ×2 (10:00→23:06)
[2016-12-03] MEDS: RIFAXIMIN 550 MG TAB PO SCH ×2 (10:00→23:06)
[2016-12-03] MEDS: DIGOXIN 0.125 MG TAB PO SCH (10:00)
[2016-12-03] MEDS: DOCUSATE SODIUM 50 MG/SENNA 8.6 MG TAB PO SCH ×2 (10:00→21:00)
[2016-12-03] MEDS: SODIUM CHLORIDE 0.9% FLUSH 10 ML FLUSH IV FLUSH SCH ×2 (10:01→23:06)
--- NOTE | 2016-12-03 17:13 | HHI.PR ---
Subjective Remarks The patient denies chest pain or shortness of breath Vital signs are stable. No fevers Objective Vitals Vital Signs Date Time Temp Pulse Resp B/P Pulse Ox O2 Delivery O2 Flow Rate FiO2 12/03/16 12:00 97.7 81 20 120/78 95 12/03/16 09:00 69 12/03/16 08:00 97.3 85 20 128/72 97 12/03/16 04:00 97.5 70 18 105/65 97 12/03/16 00:00 Room Air 12/02/16 23:55 74 12/02/16 22:30 98.0 74 18 135/83 98 12/02/16 19:17 85 18 127/69 99 Room Air 12/02/16 18:24 96 Room Air 12/02/16 18:12 98.5 90 21 124/90 97 Room Air I/O 12/02/16 12/02/16 12/02/16 12/03/16 12/03/16 12/03/16 06:59 14:59 22:59 06:59 14:59 22:59 Intake Total 120 ml 480 ml Output Total 300 ml Balance -180 ml 480 ml Intake Oral 120 ml 480 ml Output Urine Total 300 ml # Voids 4 # Bowel Movements 1 2 Result Diagram: 12/03/16 0547 12/03/16 0547 Imaging Last Impressions Head CT 12/02/161810 Signed Impressions: Service Date/Time: Friday, December 02, 2016 18:54 - CONCLUSION: 1. Nonspecific white matter changes. 2. No acute intracranial abnormality. Nikita Brody MD Chest X-Ray 12/02/161810 Signed Impressions: Service Date/Time: Friday, December 02, 2016 18:31 - CONCLUSION: 1. Bibasilar atelectasis. 2. Cardiomegaly. Nikita Brody MD Objective Remarks GENERAL: Elderly male in no acute distress. Awake and alert HEENT: PERRLA, EOMI. No scleral icterus or conjunctival pallor. No lid lag or facial droop. CARDIOVASCULAR: Regular rate and rhythm. No obvious murmurs to auscultation. No chest tenderness to palpation. RESPIRATORY: No obvious rhonchi or wheezing. Clear to auscultation. Breath sounds equal bilaterally. GASTROINTESTINAL: Abdomen soft, non-tender, nondistended. BS normal. MUSCULOSKELETAL: Extremities without clubbing, cyanosis, or edema. No obvious deformities. NEUROLOGICAL: Awake, alert and oriented x2, person/place. No focal neurologic deficits. Moving both upper and lower extremities spontaneously. Medications and IVs Current Medications Medications (Trade) Dose Ordered Sig/Thor Route Start Time Stop Time Status Last Admin (NS Flush) 2 ml UNSCH PRN IV FLUSH 12/02/16 19:45 (NS Flush) 2 ml BID IV FLUSH 12/02/16 21:00 12/03/16 10:01 (Zofran Inj) 4 mg Q6H PRN IVP 12/02/16 19:45 (Roxicodone) 10 mg Q4H PRN PO 12/02/16 19:45 (Roxicodone) 5 mg Q4H PRN PO 12/02/16 19:45 (Berna-Colace) 1 tab BID PO 12/02/16 21:00 12/03/16 10:00 (Milk Of Magnesia Liq) 30 ml Q12H PRN PO 12/02/16 19:45 (Senokot) 17.2 mg Q12H PRN PO 12/02/16 19:45 (Dulcolax Supp) 10 mg DAILY PRN RECTAL 12/02/16 19:45 (Lactulose Liq) 30 ml DAILY PRN PO 12/02/16 19:45 (Lanoxin) 0.125 mg DAILY PO 12/03/16 09:00 12/03/16 10:00 (Lasix) 20 mg BID PO 12/02/16 21:00 12/03/16 10:00 (Lopressor) 50 mg BID PO 12/02/16 21:00 12/03/16 09:59 (Xifaxan) 550 mg BID PO 12/02/16 21:00 12/03/16 10:00 (Aldactone) 50 mg DAILY PO 12/03/16 09:00 12/03/16 10:00 (Zanaflex) 2 mg BID PO 12/02/16 21:00 12/03/16 09:00 (Pill Splitter) 1 ea UNSCH PRN OTHER 12/02/16 20:00 (Lactulose Liq) 30 ml Q6HR PO 12/03/16 00:00 7/24/17 17:18 Urinary Catheter: No Vascular Central Line Catheter: No A/P Problem List: (1) Hepatic encephalopathy ICD Code: K72.90 Status: Acute (2) Cirrhosis ICD Code: K74.60 Status: Acute (3) Non-compliance ICD Code: Z91.19 Status: Acute (4) Lactic acidosis ICD Code: E87.2 Status: Acute (5) A-fib ICD Code: I48.91 Status: Acute (6) HTN (hypertension) ICD Code: I10 Status: Acute Assessment and Plan 1. Hepatic Encephalopathy: secondary to hyperammonemia from Non-compliance w/ meds. CT Head w/ no acute findings, images reviewed by me. Ammonia 168, s/p Lactulose in ER, will continue w/ Lactulose. Neuro checks q4h 2. Cirrhosis: Unclear etiology, recently moved from [place], living w/ family. LFTs stable in comparison to previous labs. Resume home Lactulose as above, Lasix/Aldactone, Rifaximin. 3. Non-Compliance: per Daughter, pt non-compliant w/ Lactulose, however takes his other medications. Resume Lactulose, stressed importance of medications. 4. Lactic Acidosis: Lactate 2.5, likely secondary to dehydration, no evidence of sepsis. Repeat Lactate if still elevated will give IV fluids. 5. A-fib: Chronic. Resume home Digoxin, Metoprolol. 6. HTN: Controlled. Will monitor, continue home medications. Patient is currently on metoprolol. 7. DVT Prophylaxis: Pharmacologic contraindication secondary to cirrhosis/ coagulopathy. Discharge Planning Continue to monitor the medical floor. Possible discharge in a.m. Problem Qualifiers (1) Cirrhosis: Qualified Code: K70.30 - Alcoholic cirrhosis of liver without ascites Salty Guzmán MD Dec 03, 2016 17:13
[2016-12-04] VITALS (8 sets, daily range): BP systolic 90–159; BP diastolic 53–84; PULSE 59–87; RESP 18–22; TEMP 97–98.3; O2SAT 18–98
[2016-12-04] MEDS: LACTULOSE SYRUP 20 GM/30 ML CUP PO SCH ×3 (06:08→16:39)
[2016-12-04] MEDS: DOCUSATE SODIUM 50 MG/SENNA 8.6 MG TAB PO SCH ×2 (08:48→21:00)
[2016-12-04] MEDS: FUROSEMIDE 20 MG TAB PO SCH ×2 (08:48→22:46)
[2016-12-04] MEDS: DIGOXIN 0.125 MG TAB PO SCH (08:48)
[2016-12-04] MEDS: RIFAXIMIN 550 MG TAB PO SCH ×2 (08:48→22:45)
[2016-12-04] MEDS: METOPROLOL TARTRATE 50 MG TAB PO SCH ×2 (08:48→22:45)
[2016-12-04] MEDS: SPIRONOLACTONE 50 MG TAB PO SCH (08:48)
[2016-12-04] MEDS: SODIUM CHLORIDE 0.9% FLUSH 10 ML FLUSH IV FLUSH SCH ×2 (08:49→21:00)
--- NOTE | 2016-12-04 15:24 | HHI.PR ---
Subjective Remarks patient c/o sob denies cp denies fevers/chills good o2 sat - 96% on room air Objective Vitals Vital Signs Date Time Temp Pulse Resp B/P Pulse Ox O2 Delivery O2 Flow Rate FiO2 12/04/16 12:00 98.0 59 20 101/65 96 12/04/16 08:00 Room Air 12/04/16 08:00 97.0 73 20 112/60 96 12/04/16 04:00 Room Air 12/04/16 04:00 98.3 71 20 90/53 96 12/04/16 00:01 97.8 87 22 159/84 96 12/04/16 00:01 Room Air 12/03/16 20:47 Room Air 12/03/16 20:47 98.4 76 22 141/92 96 12/03/16 20:18 80 12/03/16 16:00 97.4 94 20 142/68 96 I/O 12/03/16 12/03/16 12/03/16 12/04/16 12/04/16 12/04/16 07:00 15:00 23:00 07:00 15:00 23:00 Intake Total 120 ml 480 ml Output Total 300 ml 150 ml Balance -180 ml 480 ml -150 ml Intake Oral 120 ml 480 ml Output Urine Total 300 ml 150 ml # Voids 4 # Bowel Movements 1 2 2 Result Diagram: 12/03/16 0547 12/03/16 0547 Objective Remarks GENERAL: Elderly male in no acute distress. Awake and alert HEENT: PERRLA, EOMI. No scleral icterus or conjunctival pallor. No lid lag or facial droop. CARDIOVASCULAR: Regular rate and rhythm. No obvious murmurs to auscultation. No chest tenderness to palpation. RESPIRATORY: No obvious rhonchi or wheezing. Clear to auscultation. Breath sounds equal bilaterally. GASTROINTESTINAL: Abdomen soft, non-tender, nondistended. BS normal. MUSCULOSKELETAL: Extremities without clubbing, cyanosis, or edema. No obvious deformities. NEUROLOGICAL: Awake, alert and oriented x2, person/place. No focal neurologic deficits. Moving both upper and lower extremities spontaneously. Medications and IVs Current Medications Medications (Trade) Dose Ordered Sig/Thor Route Start Time Stop Time Status Last Admin (NS Flush) 2 ml UNSCH PRN IV FLUSH 12/02/16 19:45 (NS Flush) 2 ml BID IV FLUSH 12/02/16 21:00 12/04/16 08:49 (Zofran Inj) 4 mg Q6H PRN IVP 12/02/16 19:45 (Roxicodone) 10 mg Q4H PRN PO 12/02/16 19:45 12/04/16 09:50 (Roxicodone) 5 mg Q4H PRN PO 12/02/16 19:45 12/03/16 23:35 (Berna-Colace) 1 tab BID PO 12/02/16 21:00 12/04/16 08:48 (Milk Of Magnesia Liq) 30 ml Q12H PRN PO 12/02/16 19:45 (Senokot) 17.2 mg Q12H PRN PO 12/02/16 19:45 (Dulcolax Supp) 10 mg DAILY PRN RECTAL 12/02/16 19:45 (Lactulose Liq) 30 ml DAILY PRN PO 12/02/16 19:45 (Lanoxin) 0.125 mg DAILY PO 12/03/16 09:00 12/04/16 08:48 (Lasix) 20 mg BID PO 12/02/16 21:00 12/04/16 08:48 (Lopressor) 50 mg BID PO 12/02/16 21:00 12/04/16 08:48 (Xifaxan) 550 mg BID PO 12/02/16 21:00 12/04/16 08:48 (Aldactone) 50 mg DAILY PO 12/03/16 09:00 12/04/16 08:48 (Zanaflex) 2 mg BID PO 12/02/16 21:00 12/04/16 08:48 (Pill Splitter) 1 ea UNSCH PRN OTHER 12/02/16 20:00 (Lactulose Liq) 30 ml Q6HR PO 12/03/16 00:00 12/04/16 13:38 (Duoneb Neb) 1 ampule ONCE ONCE NEB 12/04/16 15:30 12/04/16 15:31 UNV A/P Problem List: (1) Hepatic encephalopathy ICD Code: K72.90 Status: Resolved (2) Cirrhosis ICD Code: K74.60 Status: Chronic (3) Non-compliance ICD Code: Z91.19 Status: Acute (4) Lactic acidosis ICD Code: E87.2 Status: Acute (5) A-fib ICD Code: I48.91 Status: Chronic (6) HTN (hypertension) ICD Code: I10 Status: Chronic Assessment and Plan 1. Hepatic Encephalopathy: secondary to hyperammonemia from Non-compliance w/ meds. CT Head w/ no acute findings, images reviewed by me. Ammonia 168, s/p Lactulose in ER, will continue w/ Lactulose. Neuro checks q4h 2. Cirrhosis: Unclear etiology, recently moved from [place], living w/ family. LFTs stable in comparison to previous labs. Resume home Lactulose as above, Lasix/Aldactone, Rifaximin. 3. Non-Compliance: per Daughter, pt non-compliant w/ Lactulose, however takes his other medications. Resume Lactulose, stressed importance of medications. 4. Lactic Acidosis: Lactate 2.5, likely secondary to dehydration, no evidence of sepsis. Repeat Lactate if still elevated will give IV fluids. Labs pending. 5. A-fib: Chronic. Resume home Digoxin, Metoprolol. 6. HTN: Controlled. Will monitor, continue home medications. Patient is currently on metoprolol. 7. DVT Prophylaxis: Pharmacologic contraindication secondary to cirrhosis/ coagulopathy. Discharge Planning Continue to monitor the medical floor. Possible discharge in 1 or 2 days. Problem Qualifiers (1) Cirrhosis: Qualified Code: K70.30 - Alcoholic cirrhosis of liver without ascites Salty Guzmán MD Dec 04, 2016 15:24
[2016-12-04] MEDS ORDERED: RESP: ALBUTEROL 2.5 MG/IPRATROPIUM 0.5 MG NEB (PRN) NEB (15:30)
[2016-12-04] MEDS ORDERED: RESP: ALBUTEROL 2.5 MG/IPRATROPIUM 0.5 MG NEB (SCH) NEB ONE (15:30)
--- NOTE | 2016-12-04 18:33 | RADRPT ---
EXAM DATE/TIME: 12/04/2016 18:19 [facility] COMPARISON: CHEST SINGLE AP, December 02, 2016, 18:31. INDICATIONS : Shortness of breath. MEDICAL HISTORY : Hypertension. Carcinoma, prostatic. A-fib. SURGICAL HISTORY : None. ENCOUNTER: Subsequent ACUITY: 2 days PAIN SCORE: 0/10 LOCATION: Bilateral chest FINDINGS: A single view of the chest demonstrates minimal bibasilar densities without evidence of mass, infiltr ate or effusion. The cardiomediastinal contours are unremarkable. Osseous structures are intact. CONCLUSION: Stable bibasilar densities could be atelectasis or scarring. Nikita Brody MD on December 04, 2016 at 18:31 Board Certified Radiologist. This report was verified electronically.
[2016-12-04 19:21] LABS: ALT (GPT) 42 U/L (12-78); ANION GAP 6 MEQ/L (5-15); AST (GOT) 46 U/L (15-37); BICARBONATE 30.5 MEQ/L (21.0-32.0); BLOOD UREA NITROGEN 15 MG/DL (7-18); CHLORIDE 101 MEQ/L (98-107); GLOMERULAR FILTRATION RATE 68 ML/MIN (>89); POTASSIUM 4.4 MEQ/L (3.5-5.1); SODIUM (NA) 137 MEQ/L (136-145)
[2016-12-04 19:24] LABS: ALKALINE PHOSPHATASE 119 U/L (45-117); TOTAL BILIRUBIN ADULT 2.2 MG/DL (0.2-1.0)
[2016-12-04 19:25] LABS: AUTOMATED NEUTROPHIL # 2.7 TH/MM3 (1.8-7.7); BASOPHIL % 0.2 % (0.0-2.0); EOSINOPHIL # 0.2 TH/MM3 (0-0.4); EOSINOPHIL % 2.9 % (0.0-4.0); HEMATOCRIT 48.9 % (39.0-51.0); HEMO FLAGS DIFF FINAL; LYMPH % 35.1 % (9.0-44.0); LYMPHOCYTE # 2.2 TH/MM3 (1.0-4.8); MEAN CELL VOLUME 99.7 FL (80.0-100.0); MEAN CORPUSCULAR HEMOGLOBIN 34.4 PG (27.0-34.0); MEAN CORPUSCULAR HGB CONC 34.5 % (32.0-36.0); MONO % 17.6 % (0.0-8.0); NEUT % 44.2 % (16.0-70.0); PLATELET COUNT 118 TH/MM3 (150-450); RED BLOOD COUNT 4.91 MIL/MM3 (4.50-5.90); RED CELL DISTRIBUTION WIDTH 14.3 % (11.6-17.2); WHITE BLOOD COUNT 6.2 TH/MM3 (4.0-11.0)
[2016-12-04] MEDS: SODIUM CHLOR 0.9% 1000 ML INJ 1,000 ML IV SCH (23:45)
[2016-12-05] VITALS (7 sets, daily range): BP systolic 108–132; BP diastolic 56–70; PULSE 62–90; RESP 16–20; TEMP 97.4–98.2; O2SAT 94–96
[2016-12-05] MEDS: LACTULOSE SYRUP 20 GM/30 ML CUP PO SCH ×4 (00:41→17:38)
[2016-12-05] MEDS: METOPROLOL TARTRATE 50 MG TAB PO SCH ×2 (08:59→22:27)
[2016-12-05] MEDS: RIFAXIMIN 550 MG TAB PO SCH ×2 (08:59→22:27)
[2016-12-05] MEDS: SODIUM CHLORIDE 0.9% FLUSH 10 ML FLUSH IV FLUSH SCH ×2 (09:00→22:26)
[2016-12-05] MEDS: DOCUSATE SODIUM 50 MG/SENNA 8.6 MG TAB PO SCH ×2 (09:00→21:00)
[2016-12-05] MEDS: SPIRONOLACTONE 50 MG TAB PO SCH (09:00)
[2016-12-05] MEDS: DIGOXIN 0.125 MG TAB PO SCH (09:00)
[2016-12-05 10:23] LABS: HEMATOCRIT 49.5 % (39.0-51.0); MEAN CELL VOLUME 100.6 FL (80.0-100.0); MEAN CORPUSCULAR HGB CONC 33.8 % (32.0-36.0); PLATELET COUNT 134 TH/MM3 (150-450); RED BLOOD COUNT 4.92 MIL/MM3 (4.50-5.90); RED CELL DISTRIBUTION WIDTH 14.1 % (11.6-17.2); REVIEW FLAG FINAL; WHITE BLOOD COUNT 5.2 TH/MM3 (4.0-11.0)
[2016-12-05 10:50] LABS: BICARBONATE 31.8 MEQ/L (21.0-32.0); POTASSIUM 3.8 MEQ/L (3.5-5.1)
[2016-12-05] MEDS: SODIUM CHLOR 0.9% 1000 ML INJ 1,000 ML IV SCH ×2 (12:11→22:26)
--- NOTE | 2016-12-05 14:17 | HHI.PR ---
Subjective Remarks denies cp/sob lactic acid elevated ammonia trending up patient states that he feels confused at timed c/o diarrhea Objective Vitals Vital Signs Date Time Temp Pulse Resp B/P Pulse Ox O2 Delivery O2 Flow Rate FiO2 12/05/16 04:00 97.4 63 19 129/69 96 12/05/16 04:00 Room Air 12/05/16 00:00 97.4 67 19 108/56 94 12/05/16 00:00 Room Air 12/04/16 20:36 76 12/04/16 20:00 Room Air 12/04/16 20:00 97.5 74 18 132/74 97 12/04/16 15:58 95 21 I/O 12/04/16 12/04/16 12/04/16 12/05/16 12/05/16 12/05/16 06:59 14:59 22:59 06:59 14:59 22:59 Intake Total 480 ml 240 ml 657 ml Output Total 600 ml 250 ml 1050 ml Balance -120 ml -10 ml -393 ml Intake Oral 480 ml 240 ml 360 ml IV Total 297 ml Output Urine Total 600 ml 250 ml 1050 ml # Bowel Movements 2 1 Result Diagram: 12/05/16 0954 12/05/16 0954 Imaging Last Impressions Chest X-Ray 12/04/16 0000 Signed Impressions: Service Date/Time: Sunday, December 04, 2016 18:19 - CONCLUSION: Stable bibasilar densities could be atelectasis or scarring. Nikita Brody MD Head CT 12/02/16 1811 Signed Impressions: Service Date/Time: Friday, December 02, 2016 18:54 - CONCLUSION: 1. Nonspecific white matter changes. 2. No acute intracranial abnormality. Nikita Brody MD Objective Remarks GENERAL: Elderly male in no acute distress. Awake and alert HEENT: PERRLA, EOMI. No scleral icterus or conjunctival pallor. No lid lag or facial droop. CARDIOVASCULAR: Regular rate and rhythm. No obvious murmurs to auscultation. No chest tenderness to palpation. RESPIRATORY: No obvious rhonchi or wheezing. Clear to auscultation. Breath sounds equal bilaterally. GASTROINTESTINAL: Abdomen soft, non-tender, nondistended. BS normal. MUSCULOSKELETAL: Extremities without clubbing, cyanosis, or edema. No obvious deformities. NEUROLOGICAL: Awake, alert and oriented x2, person/place. No focal neurologic deficits. Moving both upper and lower extremities spontaneously. Medications and IVs Current Medications Medications (Trade) Dose Ordered Sig/Thor Route Start Time Stop Time Status Last Admin (NS Flush) 2 ml UNSCH PRN IV FLUSH 12/02/16 19:45 (NS Flush) 2 ml BID IV FLUSH 12/02/16 21:00 12/04/16 21:00 (Zofran Inj) 4 mg Q6H PRN IVP 12/02/16 19:45 (Roxicodone) 10 mg Q4H PRN PO 12/02/16 19:45 12/04/16 22:46 (Roxicodone) 5 mg Q4H PRN PO 12/02/16 19:45 12/03/16 23:35 (Berna-Colace) 1 tab BID PO 12/02/16 21:00 12/04/16 08:48 (Milk Of Magnesia Liq) 30 ml Q12H PRN PO 12/02/16 19:45 (Senokot) 17.2 mg Q12H PRN PO 12/02/16 19:45 (Dulcolax Supp) 10 mg DAILY PRN RECTAL 12/02/16 19:45 (Lactulose Liq) 30 ml DAILY PRN PO 12/02/16 19:45 (Lanoxin) 0.125 mg DAILY PO 12/03/16 09:00 12/05/16 09:00 (Lasix) 20 mg BID PO 12/02/16 21:00 Hold 12/04/16 22:46 (Lopressor) 50 mg BID PO 12/02/16 21:00 12/05/16 08:59 (Xifaxan) 550 mg BID PO 12/02/16 21:00 12/05/16 08:59 (Aldactone) 50 mg DAILY PO 12/03/16 09:00 12/05/16 09:00 (Zanaflex) 2 mg BID PO 12/02/16 21:00 12/05/16 09:08 (Pill Splitter) 1 ea UNSCH PRN OTHER 12/02/16 20:00 Lactulose 30 ml 30 ml Q6HR PO 12/03/16 00:00 12/05/16 12:10 (NS 1000 ml Inj) 1,000 ml @ 125 mls/hr Q8H IV 12/04/16 23:45 12/05/16 12:11 Urinary Catheter: No Vascular Central Line Catheter: No A/P Problem List: (1) Hepatic encephalopathy ICD Code: K72.90 Status: Resolved (2) Cirrhosis ICD Code: K74.60 Status: Chronic (3) Non-compliance ICD Code: Z91.19 Status: Acute (4) Lactic acidosis ICD Code: E87.2 Status: Acute (5) A-fib ICD Code: I48.91 Status: Chronic (6) HTN (hypertension) ICD Code: I10 Status: Chronic Assessment and Plan 1. Hepatic Encephalopathy: secondary to hyperammonemia from Non-compliance w/ meds. CT Head w/ no acute findings, images reviewed by me. Ammonia 168, s/p Lactulose in ER, will continue w/ Lactulose. Neuro checks q4h 2. Cirrhosis: Unclear etiology, recently moved from [place], living w/ family. LFTs stable in comparison to previous labs. Continue Lactulose as above, Lasix/Aldactone, Rifaximin. 3. Non-Compliance: per Daughter, pt non-compliant w/ Lactulose, however takes his other medications. Medications resumed and stressed importance of taking medications. 4. Lactic Acidosis: Lactic acidosis likely secondary to dehydration. No signs of active infection. Lactic acid initially 2.5 on admission, trending down initially down to 2.2 however not trending up 2.6. I will increase to rate of normal saline to 125 mL per hour. Continue to monitor lactic acid. 5. A-fib: Chronic. Resume home Digoxin, Metoprolol. 6. HTN: Controlled. Will monitor, continue home medications. Patient is currently on metoprolol. 7. DVT Prophylaxis: Pharmacologic contraindication secondary to cirrhosis/ coagulopathy. Discharge Planning Lactic acid and ammonia trending up. Discharge pending resolution of lactic acidosis hyperammonemia. Problem Qualifiers (1) Cirrhosis: Qualified Code: K70.30 - Alcoholic cirrhosis of liver without ascites Salty Guzmán MD Dec 05, 2016 14:17
[2016-12-06] VITALS (7 sets, daily range): BP systolic 96–124; BP diastolic 55–74; PULSE 58–88; RESP 16–20; TEMP 97.5–98.3; O2SAT 93–98
[2016-12-06] MEDS: SODIUM CHLOR 0.9% 1000 ML INJ 1,000 ML IV SCH ×3 (05:00→18:08)
[2016-12-06] MEDS: LACTULOSE SYRUP 20 GM/30 ML CUP PO SCH ×4 (05:02→18:04)
[2016-12-06] MEDS: METOPROLOL TARTRATE 50 MG TAB PO SCH ×2 (08:17→22:07)
[2016-12-06] MEDS: DOCUSATE SODIUM 50 MG/SENNA 8.6 MG TAB PO SCH ×2 (08:17→22:08)
[2016-12-06] MEDS: RIFAXIMIN 550 MG TAB PO SCH ×2 (08:17→22:07)
[2016-12-06] MEDS: SPIRONOLACTONE 50 MG TAB PO SCH (08:17)
[2016-12-06] MEDS: DIGOXIN 0.125 MG TAB PO SCH (08:17)
[2016-12-06] MEDS: SODIUM CHLORIDE 0.9% FLUSH 10 ML FLUSH IV FLUSH SCH ×2 (08:24→22:08)
--- NOTE | 2016-12-06 17:43 | HHI.PR ---
Subjective Remarks Patient seen ambulating hallway awake and alert denies cp/sob Objective Vitals Vital Signs Date Time Temp Pulse Resp B/P Pulse Ox O2 Delivery O2 Flow Rate FiO2 12/06/16 16:00 97.6 66 20 124/74 98 12/06/16 12:00 97.6 64 18 105/55 97 12/06/16 08:43 96 12/06/16 08:20 Room Air 12/06/16 08:00 85 12/06/16 08:00 97.5 60 20 117/65 96 12/06/16 04:00 98.2 65 18 111/66 94 12/06/16 00:00 98.3 58 16 96/58 93 12/05/16 20:00 97.8 62 20 126/60 95 12/05/16 19:00 Room Air I/O 12/05/16 12/05/16 12/05/16 12/06/16 12/06/16 12/06/16 07:00 15:00 23:00 07:00 15:00 23:00 Intake Total 657 ml 1251 ml 380 ml 1100 ml 840 ml Output Total 1050 ml 125 ml 319 ml 400 ml 475 ml Balance -393 ml 1126 ml 61 ml 700 ml 365 ml Intake Oral 360 ml 600 ml 380 ml 355 ml 840 ml IV Total 297 ml 651 ml 745 ml Output Urine Total 1050 ml 125 ml 319 ml 400 ml 475 ml # Voids 1 2 # Bowel Movements 1 1 3 2 2 Result Diagram: 12/05/16 0954 12/05/16 0954 Imaging Last Impressions Chest X-Ray 12/04/16 0000 Signed Impressions: Service Date/Time: Sunday, December 04, 2016 18:19 - CONCLUSION: Stable bibasilar densities could be atelectasis or scarring. Nikita Brody MD Head CT 12/02/16 1811 Signed Impressions: Service Date/Time: Friday, December 02, 2016 18:54 - CONCLUSION: 1. Nonspecific white matter changes. 2. No acute intracranial abnormality. Nikita Brody MD Objective Remarks GENERAL: Elderly male in no acute distress. Awake and alert HEENT: PERRLA, EOMI. No scleral icterus or conjunctival pallor. No lid lag or facial droop. CARDIOVASCULAR: Regular rate and rhythm. No obvious murmurs to auscultation. No chest tenderness to palpation. RESPIRATORY: No obvious rhonchi or wheezing. Clear to auscultation. Breath sounds equal bilaterally. GASTROINTESTINAL: Abdomen soft, non-tender, nondistended. BS normal. MUSCULOSKELETAL: Extremities without clubbing, cyanosis, or edema. No obvious deformities. NEUROLOGICAL: Awake, alert and oriented x2, person/place. No focal neurologic deficits. Moving both upper and lower extremities spontaneously. Procedures none Medications and IVs Current Medications Medications (Trade) Dose Ordered Sig/Thor Route Start Time Stop Time Status Last Admin (NS Flush) 2 ml UNSCH PRN IV FLUSH 12/02/16 19:45 (NS Flush) 2 ml BID IV FLUSH 12/02/16 21:00 12/06/16 08:24 (Zofran Inj) 4 mg Q6H PRN IVP 12/02/16 19:45 (Roxicodone) 10 mg Q4H PRN PO 12/02/16 19:45 12/06/16 05:02 (Roxicodone) 5 mg Q4H PRN PO 12/02/16 19:45 12/03/16 23:35 (Berna-Colace) 1 tab BID PO 12/02/16 21:00 12/06/16 08:17 (Milk Of Magnesia Liq) 30 ml Q12H PRN PO 12/02/16 19:45 (Senokot) 17.2 mg Q12H PRN PO 12/02/16 19:45 (Dulcolax Supp) 10 mg DAILY PRN RECTAL 12/02/16 19:45 (Lactulose Liq) 30 ml DAILY PRN PO 12/02/16 19:45 (Lanoxin) 0.125 mg DAILY PO 12/03/16 09:00 12/06/16 08:17 (Lasix) 20 mg BID PO 12/02/16 21:00 Hold 12/04/16 22:46 (Lopressor) 50 mg BID PO 12/02/16 21:00 12/06/16 08:17 (Xifaxan) 550 mg BID PO 12/02/16 21:00 12/06/16 08:17 (Aldactone) 50 mg DAILY PO 12/03/16 09:00 12/06/16 08:17 (Zanaflex) 2 mg BID PO 12/02/16 21:00 12/06/16 08:17 Miscellaneous 1 ea 1 ea UNSCH PRN OTHER 12/02/16 20:00 (NS 1000 ml Inj) 1,000 ml @ 150 mls/hr Q6H40M IV 12/04/16 23:45 12/06/16 12:07 (Lactulose Liq) 45 ml Q6HR PO 12/05/16 18:00 12/06/16 05:02 Urinary Catheter: No Vascular Central Line Catheter: No A/P Problem List: (1) Hepatic encephalopathy ICD Code: K72.90 Status: Resolved (2) Cirrhosis ICD Code: K74.60 Status: Chronic (3) Non-compliance ICD Code: Z91.19 Status: Acute (4) Lactic acidosis ICD Code: E87.2 Status: Acute (5) A-fib ICD Code: I48.91 Status: Chronic (6) HTN (hypertension) ICD Code: I10 Status: Chronic Assessment and Plan 1. Hepatic Encephalopathy: secondary to hyperammonemia from Non-compliance w/ meds. CT Head w/ no acute findings, images reviewed by me. Ammonia 168, s/p Lactulose in ER, will continue w/ Lactulose. Neuro checks q4h. 12/06 ammonia trending up to 105. Lactulose dose increased to 45 ml every 6 hrs. continue to monitor ammonia. 2. Cirrhosis: Unclear etiology, recently moved from [place], living w/ family. LFTs stable in comparison to previous labs. Continue Lactulose as above, Lasix/Aldactone, Rifaximin. 3. Non-Compliance: per Daughter, pt non-compliant w/ Lactulose, however takes his other medications. Medications resumed and stressed importance of taking medications. 4. Lactic Acidosis: Lactic acidosis likely secondary to dehydration. No signs of active infection. Lactic acid initially 2.5 on admission, trending down initially down to 2.2 however not trending up 2.6. NS rate increased on to 125 ml/hr. 12/06 Lactic Acid improved but still elevated at 2.3. Continue IV Fluids. 5. A-fib: Chronic. Resume home Digoxin, Metoprolol. 6. HTN: Controlled. Will monitor, continue home medications. Patient is currently on metoprolol. 7. DVT Prophylaxis: Pharmacologic contraindication secondary to cirrhosis/ coagulopathy. Discharge Planning Ammonia trending up, lactic acid still elevated. Discharge pending resolution of lactic acidosis hyperammonemia. Problem Qualifiers (1) Cirrhosis: Qualified Code: K70.30 - Alcoholic cirrhosis of liver without ascites Salty Guzmán MD Dec 06, 2016 17:43
[2016-12-06] MEDS: TAMSULOSIN HCL 0.4 MG CAP PO SCH (22:07)
[2016-12-07] VITALS: BP 100/55; PULSE 67; RESP 20; TEMP 98.2; O2SAT 97
[2016-12-07] MEDS: LACTULOSE SYRUP 20 GM/30 ML CUP PO SCH ×4 (01:15→18:23)
[2016-12-07] MEDS: SODIUM CHLOR 0.9% 1000 ML INJ 1,000 ML IV SCH ×4 (02:19→20:19)
[2016-12-07 04:00] VITALS: BP 109/71; PULSE 64; RESP 20; TEMP 98.3; O2SAT 98
[2016-12-07 08:00] VITALS: BP 109/64; PULSE 122; PULSE 89; RESP 20; TEMP 98.2; O2SAT 94
[2016-12-07] MEDS: METOPROLOL TARTRATE 50 MG TAB PO SCH ×2 (08:15→20:18)
[2016-12-07] MEDS: DIGOXIN 0.125 MG TAB PO SCH (08:15)
[2016-12-07] MEDS: RIFAXIMIN 550 MG TAB PO SCH ×2 (08:15→20:19)
[2016-12-07] MEDS: SPIRONOLACTONE 50 MG TAB PO SCH (08:15)
[2016-12-07] MEDS: DOCUSATE SODIUM 50 MG/SENNA 8.6 MG TAB PO SCH (08:26)
[2016-12-07] MEDS: SODIUM CHLORIDE 0.9% FLUSH 10 ML FLUSH IV FLUSH SCH ×2 (08:26→20:19)
--- NOTE | 2016-12-07 11:12 | HHI.FF ---
Face to Face Verification Diagnosis: (1) Hepatic encephalopathy (2) Cirrhosis (3) A-fib (4) HTN (hypertension) Physical Therapy Order: Evaluate and Treat Home Health Nursing Order: Signs/symptoms of disease process I have seen patient Anoop Lovell on 12/07/16. My clinical findings support the need for the requested home health care services because: Deconditioned w/ increased weakness I certify that my clinical findings support that this patient is homebound because: Poor cardiac reserve Nikita Montoya MD Dec 07, 2016 11:12
--- NOTE | 2016-12-07 11:17 | HHI.PR ---
Subjective Remarks Follow-up Hepatic encephalopathy/lactic acidosis/cirrhosis 12/07/16-patient seen and examined alert and oriented 3, no acute event overnight. Afebrile and good appetite. Objective Vitals Vital Signs Date Time Temp Pulse Resp B/P Pulse Ox O2 Delivery O2 Flow Rate FiO2 12/07/16 08:30 Room Air 12/07/16 08:00 98.2 89 20 109/64 94 12/07/16 04:00 98.3 64 20 109/71 98 12/07/16 00:00 98.2 67 20 100/55 97 12/06/16 20:00 97.9 59 16 115/70 97 12/06/16 20:00 88 12/06/16 19:00 Room Air 12/06/16 16:00 97.6 66 20 124/74 98 12/06/16 12:00 97.6 64 18 105/55 97 I/O 12/06/16 12/06/16 12/06/16 12/07/16 12/07/16 12/07/16 06:59 14:59 22:59 06:59 14:59 22:59 Intake Total 1100 ml 840 ml 240 ml 1151 ml Output Total 519 ml 475 ml 575 ml 800 ml Balance 581 ml 365 ml -335 ml 351 ml Intake Oral 355 ml 840 ml 240 ml 360 ml IV Total 745 ml 791 ml Output Urine Total 519 ml 475 ml 575 ml 800 ml # Voids 2 # Bowel Movements 2 2 2 1 Result Diagram: 12/05/16 0954 12/05/16 0954 Imaging Last Impressions Chest X-Ray 12/04/16 0000 Signed Impressions: Service Date/Time: Sunday, December 04, 2016 18:19 - CONCLUSION: Stable bibasilar densities could be atelectasis or scarring. Nikita Brody MD Head CT 12/02/16 1811 Signed Impressions: Service Date/Time: Friday, December 02, 2016 18:54 - CONCLUSION: 1. Nonspecific white matter changes. 2. No acute intracranial abnormality. Nikita Brody MD Objective Remarks GENERAL: NAD SKIN: Warm and dry. HEAD: Normocephalic. EYES: No scleral icterus. No injection or drainage. NECK: Supple, trachea midline. No JVD or lymphadenopathy. CARDIOVASCULAR: Regular rate and rhythm without murmurs, gallops, or rubs. RESPIRATORY: Breath sounds equal bilaterally. No accessory muscle use. GASTROINTESTINAL: Abdomen soft, non-tender, nondistended. MUSCULOSKELETAL: No cyanosis, or edema. BACK: Nontender without obvious deformity. No CVA tenderness. Procedures none A/P Problem List: (1) Hepatic encephalopathy ICD Code: K72.90 Status: Resolved (2) Cirrhosis ICD Code: K74.60 Status: Chronic (3) Non-compliance ICD Code: Z91.19 Status: Acute (4) Lactic acidosis ICD Code: E87.2 Status: Acute (5) A-fib ICD Code: I48.91 Status: Chronic (6) HTN (hypertension) ICD Code: I10 Status: Chronic Assessment and Plan 76-year-old man with 1. Hepatic Encephalopathy: secondary to hyperammonemia from Non-compliance w/ meds. CT Head w/ no acute findings Currently on lactulose 45 mg 4 times a day ; check ammonia level this a.m. 2. Cirrhosis: Unclear etiology, recently moved from [place], living w/ family. LFTs stable in comparison to previous labs. Continue Lactulose as above, Lasix/Aldactone, Rifaximin. 3. Non-Compliance: Patient was advised on medical compliance 4. Lactic Acidosis: Likely secondary to dehydration, continue with IV fluid pending repeat lactic acid this a.m. 5. A-fib: Chronic. Rate controlled on home Digoxin, Metoprolol. Oral anticoagulation contraindicated due to patient's history of noncompliance as well as increase risk of coagulopathy 6. HTN: Controlled. continue home medications. Patient is currently on metoprolol. 7. DVT Prophylaxis: Pharmacologic contraindication secondary to cirrhosis/ coagulopathy. Problem Qualifiers (1) Cirrhosis: Qualified Code: K70.30 - Alcoholic cirrhosis of liver without ascites Nikita Montoya MD Dec 07, 2016 11:17
--- NOTE | 2016-12-07 11:19 | HHI.DS ---
Discharge Summary Admission Date Dec 02, 2016 at 20:24 Discharge Date: Dec 08, 2016 Admitting Diagnosis (1) Hepatic encephalopathy ICD Code: K72.90 (2) Cirrhosis ICD Code: K74.60 (3) Non-compliance ICD Code: Z91.19 (4) Lactic acidosis ICD Code: E87.2 (5) A-fib ICD Code: I48.91 (6) HTN (hypertension) ICD Code: I10 Procedures none Brief History - From Admission This is a 76-year-old male with a PMH of HTN, A. fib, Prostate CA, Hyperlipidemia, Cirrhosis and Noncompliance was brought to the ER by EMS secondary to altered mental status noted by family. Daughter is paintings restorer, noted patient to be more confused than normal. States he is typically noncompliant with his Lactulose, although does take his other medications. History limited from patient secondary to altered mental status. On arrival, BP 124/90, HR 90, O2 sat 97% on RA, Afebrile. CBC at baseline except for hemoconcentration with hemoglobin 17.8. Platelets 129, previously 133 on . GFR 63. Lactic Acid 2.5. LFTs essentially baseline. Ammonia 168. INR 1.4. UA pending. CXR with bibasilar atelectasis. CT Head with no acute findings. S/p Lactulose in ER. CBC/BMP: 12/05/16 0954 12/05/16 0954 Significant Findings Laboratory Tests Test 12/04/16 12/05/16 12/06/16 18:47 09:54 15:30 Mean Corpuscular Hemoglobin 34.4 PG (27.0-34.0) Platelet Count 118 TH/MM3 134 TH/MM3 (150-450) (150-450) Monocytes (%) (Auto) 17.6 % (0.0-8.0) Monocytes # (Auto) 1.1 TH/MM3 (0-0.9) Estimat Glomerular Filtration 68 ML/MIN (>89) 80 ML/MIN (>89) Rate Lactic Acid Level 2.2 mmol/L 2.6 mmol/L 2.3 mmol/L (0.4-2.0) (0.4-2.0) (0.4-2.0) Total Bilirubin 2.2 MG/DL (0.2-1.0) Aspartate Amino Transf 46 U/L (15-37) (AST/SGOT) Alkaline Phosphatase 119 U/L (45-117) Ammonia 83 MCMOL/L 96 MCMOL/L 105 MCMOL/L (11-32) (11-32) (11-32) Albumin 2.9 GM/DL (3.4-5.0) Mean Corpuscular Volume 100.6 FL (80.0-100.0) Random Glucose 116 MG/DL (74-106) Imaging Last Impressions Chest X-Ray 12/04/16 0000 Signed Impressions: Service Date/Time: Sunday, December 04, 2016 18:19 - CONCLUSION: Stable bibasilar densities could be atelectasis or scarring. Nikita Brody MD Head CT 12/02/16 1811 Signed Impressions: Service Date/Time: Friday, December 02, 2016 18:54 - CONCLUSION: 1. Nonspecific white matter changes. 2. No acute intracranial abnormality. Nikita Brody MD PE at Discharge GENERAL: NAD SKIN: Warm and dry. HEAD: Normocephalic. EYES: No scleral icterus. No injection or drainage. NECK: Supple, trachea midline. No JVD or lymphadenopathy. CARDIOVASCULAR: Regular rate and rhythm without murmurs, gallops, or rubs. RESPIRATORY: Breath sounds equal bilaterally. No accessory muscle use. GASTROINTESTINAL: Abdomen soft, non-tender, nondistended. MUSCULOSKELETAL: No cyanosis, or edema. BACK: Nontender without obvious deformity. No CVA tenderness. Hospital Course Patient admitted secondary to hepatic encephalopathy which lactulose dose was adjusted accordingly. He was continued on his treatment for cirrhosis as well as other chronic medical conditions. Secondary to lactic acidosis, IV fluid hydration was started. PT was consulted. Patient that was advanced accordingly. DVT and GI prophylaxis were provided. Prior to discharge, patient 's condition improved and vitals remained stable Pt Condition on Discharge: Stable Discharge Disposition: Disch w/ Home Health Serv Discharge Time: > 30 minutes Discharge Instructions DIET: Follow Instructions for: Heart Healthy Diet Activities you can perform: Regular-No Restrictions Follow up Referrals: PCP Follow-up - 1 Week New Medications: ([Lactulose Liq]) 30 ML SYRP 45 ML PO Q6HR Infection #120 Ref 3 ML Continued Medications: Digoxin (Digoxin) 0.125 Mg Tab 0.125 MG PO DAILY Regulate Heart Beat #30 Ref 0 TAB Metoprolol Tartrate (Metoprolol Tartrate) 50 Mg Tab 50 MG PO BID #60 Ref 0 TAB Rifaximin (Xifaxan) 550 Mg Tab 550 MG PO BID Hepatic encephalopathy #60 TAB Spironolactone (Spironolactone) 50 Mg Tab 50 MG PO DAILY #30 Ref 0 TAB Tamsulosin (Flomax) 0.4 Mg Cap 0.4 MG PO HS Manage Prostate Problems #30 Ref 0 CAP Tizanidine (Tizanidine) 2 Mg Tab 2 MG PO BID Muscle Spasm Ref 0 TAB Discontinued Medications: Amoxicillin (Amoxicillin) 875 Mg Tab 875 MG PO BID Infection #20 Ref 0 TAB Gabapentin (Gabapentin) 100 Mg Cap 100 MG PO BID #60 Ref 0 CAP Lactulose Liq (Lactulose Liq) 10 Gm/15 Ml Soln 30 ML PO Q6H Ref 0 ML Oxycodone (Oxycodone) 5 Mg Cap 5 MG PO Q8H PRN PAIN Ref 0 CAP Nikita Montoya MD Dec 07, 2016 11:19
[2016-12-07 12:00] VITALS: BP 110/59; PULSE 72; RESP 20; TEMP 96.6; O2SAT 97
[2016-12-07 16:00] VITALS: BP 118/65; PULSE 66; RESP 18; TEMP 98.5; O2SAT 95
[2016-12-07 20:00] VITALS: BP 149/65; PULSE 80; PULSE 89; RESP 19; TEMP 98.4; O2SAT 99
[2016-12-07] MEDS: TAMSULOSIN HCL 0.4 MG CAP PO SCH (20:18)
[2016-12-08] VITALS: BP 144/86; PULSE 94; RESP 19; TEMP 97.8; O2SAT 98
[2016-12-08] MEDS: LACTULOSE SYRUP 20 GM/30 ML CUP PO SCH ×2 (02:53→05:04)
[2016-12-08 04:00] VITALS: BP 116/70; PULSE 60; RESP 18; TEMP 97.5; O2SAT 97
[2016-12-08] MEDS: SODIUM CHLOR 0.9% 1000 ML INJ 1,000 ML IV SCH (05:08)
[2016-12-08 08:00] VITALS: BP 106/59; PULSE 66; RESP 18; TEMP 98.3; O2SAT 94
[2016-12-08] MEDS: SPIRONOLACTONE 50 MG TAB PO SCH (09:41)
[2016-12-08] MEDS: RIFAXIMIN 550 MG TAB PO SCH (09:41)
[2016-12-08] MEDS: METOPROLOL TARTRATE 50 MG TAB PO SCH (09:41)
[2016-12-08] MEDS: SODIUM CHLORIDE 0.9% FLUSH 10 ML FLUSH IV FLUSH SCH (09:41)
[2016-12-08] MEDS: DIGOXIN 0.125 MG TAB PO SCH (09:41)
--- NOTE | 2016-12-08 10:05 | HHI.PR ---
Subjective Remarks Follow-up Hepatic encephalopathy/lactic acidosis/cirrhosis 12/07/16-patient seen and examined alert and oriented 3, no acute event overnight. Afebrile and good appetite. 12/08/16-patient seen and examined, no acute event overnight and stable. Tolerated by mouth. Afebrile. Objective Vitals Vital Signs Date Time Temp Pulse Resp B/P Pulse Ox O2 Delivery O2 Flow Rate FiO2 12/08/16 08:00 98.3 66 18 106/59 94 12/08/16 04:00 97.5 60 18 116/70 97 12/08/16 00:00 97.8 94 19 144/86 98 12/07/16 21:05 Room Air 12/07/16 20:00 98.4 80 19 149/65 99 12/07/16 20:00 89 12/07/16 16:00 98.5 66 18 118/65 95 12/07/16 12:00 96.6 72 20 110/59 97 I/O 12/07/16 12/07/16 12/07/16 12/08/16 12/08/16 12/08/16 06:59 14:59 22:59 06:59 14:59 22:59 Intake Total 1151 ml 720 ml 2980 ml 1687 ml Output Total 800 ml 375 ml 780 ml 700 ml Balance 351 ml 345 ml 2200 ml 987 ml Intake Oral 360 ml 720 ml 380 ml 400 ml IV Total 791 ml 2600 ml 1287 ml Output Urine Total 800 ml 375 ml 780 ml 700 ml # Voids 3 # Bowel Movements 1 3 3 2 Result Diagram: 12/05/16 0954 12/05/16 0954 Imaging Last Impressions Chest X-Ray 12/04/16 0000 Signed Impressions: Service Date/Time: Sunday, December 04, 2016 18:19 - CONCLUSION: Stable bibasilar densities could be atelectasis or scarring. Nikita Brody MD Head CT 12/02/16 1811 Signed Impressions: Service Date/Time: Friday, December 02, 2016 18:54 - CONCLUSION: 1. Nonspecific white matter changes. 2. No acute intracranial abnormality. Nikita Brody MD Objective Remarks GENERAL: NAD SKIN: Warm and dry. HEAD: Normocephalic. EYES: No scleral icterus. No injection or drainage. NECK: Supple, trachea midline. No JVD or lymphadenopathy. CARDIOVASCULAR: Regular rate and rhythm without murmurs, gallops, or rubs. RESPIRATORY: Breath sounds equal bilaterally. No accessory muscle use. GASTROINTESTINAL: Abdomen soft, non-tender, nondistended. MUSCULOSKELETAL: No cyanosis, or edema. BACK: Nontender without obvious deformity. No CVA tenderness. Procedures none A/P Problem List: (1) Hepatic encephalopathy ICD Code: K72.90 Status: Resolved (2) Cirrhosis ICD Code: K74.60 Status: Chronic (3) Non-compliance ICD Code: Z91.19 Status: Acute (4) Lactic acidosis ICD Code: E87.2 Status: Acute (5) A-fib ICD Code: I48.91 Status: Chronic (6) HTN (hypertension) ICD Code: I10 Status: Chronic Assessment and Plan 76-year-old man with 1. Hepatic Encephalopathy: secondary to hyperammonemia which is now improving. CT Head w/ no acute findings Currently on lactulose 45 mg 4 times a day ; ammonia level this a.m. 2. Cirrhosis: Unclear etiology, recently moved from [place], living w/ family. LFTs stable in comparison to previous labs. Continue Lactulose as above, Lasix/Aldactone, Rifaximin. 3. Non-Compliance: Patient was advised on medical compliance 4. Lactic Acidosis: Improving Likely secondary to dehydration, continue with IV fluid pending repeat lactic acid this a.m. 5. A-fib: Chronic. Rate controlled on home Digoxin, Metoprolol. Oral anticoagulation contraindicated due to patient's history of noncompliance as well as increase risk of coagulopathy 6. HTN: Controlled. continue home medications. Patient is currently on metoprolol. 7. DVT Prophylaxis: Pharmacologic contraindication secondary to cirrhosis/ coagulopathy. Problem Qualifiers (1) Cirrhosis: Qualified Code: K70.30 - Alcoholic cirrhosis of liver without ascites Nikita Montoya MD Dec 08, 2016 10:05
[2016-12-08] MEDS ORDERED: Lactulose Liq PO (10:07)
[2016-12-08 12:00] VITALS: BP 96/57; PULSE 59; RESP 18; TEMP 98.4; O2SAT 96
[2016-12-09] MEDS ORDERED: TAMS5CAP PO (08:13)
== END 2016-12-08 13:00 | disposition home health service (06) | DRG 442 ==
LOC: NEPC 17:59 → NEDA 19:52 → OBSVTOIN 20:24 → N04B 22:17
PROVIDERS: ADMIT Hospitalist; ATTEND Hospitalist
DX: K72.90 Hepatic failure, unspecified without coma (principal); E87.2 Acidosis; I48.2 Chronic atrial fibrillation; K74.60 Unspecified cirrhosis of liver; E86.0 Dehydration; E78.5 Hyperlipidemia, unspecified; I10 Essential (primary) hypertension; Z85.46 Personal history of malignant neoplasm of prostate; Z91.14 Patient's other noncompliance with medication regimen; Z88.5 Allergy status to narcotic agent
CPT/HCPCS: 70450; 71010; 76937; 80048; 80053; 80162; 81001; 82140; 83605; 83690; 83735; 84443; 84484; 85025; 85027; 85610; 85730; 87040; 93005; 94150; J7030